=== PATIENT | male | born 1950 | race Caucasian/White ===

== ENCOUNTER 2017-10-16 09:00 | Outpatient (RCR) | payer MEDICARE, BC, SELFPAY ==
--- NOTE | 2017-10-02 09:53 | PTTR_ITS ---
DATE: 10/02/17 SUBJECTIVE: Benito states he was doing better until this weekend, when he played tennis the first time in awhile and immediately reinjured his R shoulder , starting with a vannessa then with a back tender fourdrinier. He bailed out after a couple of games. His shoulder is feeling better today but is still symptomatic. He complains of intermittent discomfort throughout the lateral aspect of the proximal R humerus. This is usually movement induced. Has no resting pain. He is able to sleep on his R side OBJECTIVE: Seen approx. 2 weeks ago. Has been on a scapular stabilization program and had been progressing nicely until he picked up the racket. He comes into the clinic with a kinesio tape-type on his R humerus. His cervical spine movements are nonirritable, although limited within an articular pattern. 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 He has questions about orthotic devices. He looked at some OTC devices, full length as well as sulcus length, and he is going to try these out tomorrow in his athletic shoes as he does not have them today. His active R shoulder motion feels good with initiation of flexion and abduction without scapular substitution. He has some end range pain, particularly with abduction. I did not test thumbs behind the back. I load the cuff today and he has weakness with ER with minimal discomfort. He has some discomfort with pure abduction, but tolerates resistance relatively well, as well as scaption/abduction and IR. Negative pain with elbow flexion or forearm supination. I do not see a Manjinder deformity. He is non tender over the GT or the posterior aspect of the humeral head. He is tender over the long head of the biceps bilaterally and equally. I review his exercise program and have him start some side lying ER anti- gravity exercises to activate the infraspinatus component. No weights for the time being but he can add some 1 or 1 lb weights with time as symptoms diminish. I also do some core strengthening with activating the transverse abdominis, along with diaphragmatic breathing in the glutes. He has weakness with resisting the gluteus medius in the side lying position, but he locks in nicely once he stabilizes his core. Therapeutic procedures ([id number]). Assessment: Pt aggravated his shoulder while playing tennis the other day. He does have some weakness in the infraspinatus and I question whether he has a partial tear , or at least extended it. He has had some orthotic devices in the past 30 years ago and did not like them, but he is interested in trying to address his hyperpronation. He is going to try an OTC pair just to see how to fix his overall symptoms and alignment. Plan: As noted above. Starting to work on his core as well as continue with his scapular stabilization exercises, but within the limits of pain, particularly with his ER. He is going to stop by the clinic in the next day or 2 and try the OTC orthotic devices. He has a follow-up appt with me in 2 weeks. Direct treatment time: 30 min Total treatment time: 30 min DLW/fw
--- NOTE | 2017-10-16 09:00 | PTDS_ITS ---
Date: October 16, 2017 Referring: Omid Moeller DO Diagnosis: Cuff/bicep tendinopathy R shoulder with OA of L knee. Subjective: History of Present Illness: Benito notes a 70% improvement in his shoulder pain compared to 2 weeks ago. He was doing fine until this morning when he was lifting a bag of garbage out to the side and aggravated it, but for the most part has been moving in a positive direction. He is back to lifting weights, particularly ones designed by ourselves. No increase in his knee pain. Objective: A 66 year old male with osteoarthritis of the knees L greater than R and a cuff tendinopathy of the R shoulder. He aggravated this playing tennis 3 weeks ago, but it settled back down until this morning when he re-aggravated it. ROM: His cervical spine movements are mildly limited within an articular pattern, but without pain on movement or reproduction of his symptoms. His R shoulder motion reveals good initiation of flexion/abduction without scapular substitution or painful arc. His R thumb is 1 below the L when reaching behind his back with end range drawing throughout the anterior aspect of the proximal R humerus. He tolerates good resistance to the rotator cuff, but it does reproduce his symptoms when loading the supra and infraspinatus components. He is non-tender over the AC/SC joints, subacromially. He clears with a Hawkin's Nathen impingement maneuver. Knee examination was not performed. We discussed his HEP, which he has been compliant with. He works out regularly at [employer]. Treatment: Therapeutic Procedure [id number] Treatment Time: 25 mins Assessment: Symptoms are much more manageable now. He did aggravate his shoulder today with lifting heavier item out to the side, has loaded up the infraspinatus component of his cuff, probably has a partial tear and is still healing. The important this, is that he is 70% better compared to a few weeks ago, so he is moving in a positive direction and he feels it is manageable and does not need more aggressive intervention currently. This certainly is an option if his symptoms persist after another 6-12 weeks. G-Codes: Patient was limited in the category of mobility, walking, moving around with projected goal of [id number] and discharge status of [id number] GOALS have been obtained. Plan: Have Torin continue with his HEP being careful of lifting weights out to the side, when doing so making sure he is in sagittal plane. Discharge from P.T. DLW/dl *Dr. Moeller, please sign this discharge summary if you are in agreement with the above plan of care. cc: Omid Moeller DO
== END 2017-10-26 23:59 | disposition home or self-care (01) ==
LOC: PT 09:00
PROVIDERS: PCP Family Medicine; Referring Provider Family Medicine; Visit Provider Family Medicine
DX: M65.811 Other synovitis and tenosynovitis, right shoulder (principal); M75.21 Bicipital tendinitis, right shoulder; M75.41 Impingement syndrome of right shoulder; M17.12 Unilateral primary osteoarthritis, left knee
CPT/HCPCS: 97110

== ENCOUNTER → 2017-12-11 09:35 | Outpatient (BNVA) | payer MEDICARE, BC, SELFPAY | PROVIDERS: Visit Provider Orthopaedic Surgery | DX: M17.12 Unilateral primary osteoarthritis, left knee (principal); M75.81 Other shoulder lesions, right shoulder | CPT/HCPCS: 20610; 99211; 99213; J7325 ==

== ENCOUNTER 2018-01-31 09:06 | Outpatient (CLI) | payer MEDICARE, BC, SELFPAY ==
[2018-01-31 11:03] LABS: Abs Immature Grans 0.02 k/cumm (0.0-0.09); HCT 42.3 % (40.0-50.0); HGB 14.5 g/dL (13.5-17.5); Mean Corp. HGB Concentration 34.3 g/dL (32.0-36.0); Mean Corpuscular Hemoglobin 30.9 pg (27.0-33.0); Mean Corpuscular Volume 90.2 fL (80-95); Mean Platelet Volume 9.8 fL (8.0-11.0); Platelet Count 249 x1000/uL (130-400); RBC 4.69 m/cumm (4.50-6.00); RBC Distribution Width 13.4 % (11.8-14.1); White Blood Cell Count 5.85 k/cumm (4.4-10.8)
[2018-01-31 11:30] LABS: Anion Gap 8.2 mmol/L (3-11); BUN 22 mg/dL (7-18); CO2 25.8 mmol/L (21.0-32.0); Calcium 8.8 mg/dL (8.5-10.1); Chloride 104 mmol/L (98-107); Cholesterol 206 mg/dL (50-200); Glucose 105 mg/dL (70-100); HDL Cholesterol 37 mg/dL (40-60); LDL CHOLESTEROL 140 mg/dL (<100); Potassium 4.3 mmol/L (3.5-5.1); Sodium 138 mmol/L (136-145); Triglyceride 110 mg/dL (30-150)
[2018-01-31 11:56] LABS: TSH (W/Ref FT4) 2.42 uIU/mL (0.358-3.74); Vitamin B12 410 pg/mL (193-986)
[2018-01-31 12:10] LABS: Absolute Basophil Count 0.18 k/cumm (0.0-0.2); Absolute Eosinophil Count 0.35 k/cumm (0.0-0.7); Absolute Lymphocyte Count 1.81 k/cumm (1.2-3.4); Absolute Monocyte Count 0.64 k/cumm (0.11-0.7); Absolute Neutrophil Count 2.87 k/cumm (1.2-6.7); Atypical Lymphocytes % 11; Diff Comment Manual Differential; RBC Morphology Normal
== END 2018-01-31 09:26 ==
PROVIDERS: PCP Family Medicine; Visit Provider Family Medicine
DX: R53.83 Other fatigue (principal); E78.5 Hyperlipidemia, unspecified; R73.9 Hyperglycemia, unspecified
CPT/HCPCS: 36415; 80048; 80061; 83721; 82607; 84443; 85025

== ENCOUNTER → 2018-07-16 09:19 | Outpatient (BNVA) | payer MEDICARE, BC, SELFPAY | PROVIDERS: PCP Family Medicine; Referring Provider Family Medicine; Visit Provider Orthopaedic Surgery | DX: M75.81 Other shoulder lesions, right shoulder (principal); M17.12 Unilateral primary osteoarthritis, left knee; M21.162 Varus deformity, not elsewhere classified, left knee | CPT/HCPCS: 20610; 99211; 99212; J7325 ==

== ENCOUNTER 2018-07-26 09:18 | Outpatient (CLI) | payer MEDICARE, BC, SELFPAY ==
--- NOTE | 2018-07-26 09:14 | DI.RAD_ITS ---
SYMPTOMS/DIAGNOSIS: LT TKA PLANNING LEG LENGTH EXAMINATION: In the right knee there is moderate narrowing and mild periarticular spurring in the medial femoral tibial joint space. Mild periarticular spurring is seen laterally. In the left knee there is moderately severe narrowing in the femoral tibial joint space with periarticular spurring seen medially and laterally. Chondrocalcinosis is present. The right lower extremity measures 93.9 cm. The left lower extremity measures 93.2 cm. LEFT KNEE: Single lateral view was obtained. The AP view of the left knee was evaluated on the leg length examination. In the medial joint compartment there is moderately severe narrowing present. There is mild narrowing of the patellofemoral joint. Periarticular spurring is seen involving all three joint compartments. There does appear to be chondrocalcinosis. There is a moderate suprapatellar joint effusion. Vascular calcifications are present. IMPRESSION: Moderately severe degenerative changes of the left knee.
== END 2018-07-26 09:38 ==
PROVIDERS: PCP Family Medicine; Referring Provider Family Medicine; Visit Provider Student in an Organized Health Care Education/Training Program
DX: M17.12 Unilateral primary osteoarthritis, left knee (principal); M21.70 Unequal limb length (acquired), unspecified site; M16.11 Unilateral primary osteoarthritis, right hip; M25.562 Pain in left knee; I10 Essential (primary) hypertension
CPT/HCPCS: 99212; 99213; 73560; 77073

== ENCOUNTER 2018-08-16 08:16 | Outpatient (CLI) | payer MEDICARE, BC, SELFPAY ==
--- NOTE | 2018-08-16 09:35 | HPE_ITS ---
Assessment and Plan (1) Primary osteoarthritis of left knee: Current visit: No Status: Chronic Plan: Educated patient on surgery covering surgical technique with the use of prosthesis components, recovery process, benefits and risks including but not limited to risk of infection, blood clot, damage to soft tissue/blood vessels/nerves in detail. After discussion patient gives verbal understanding of risks and elects to proceed with scheduling surgery. Patient had opportunity to have questions answered to their satisfaction. They will contact office if issues arise. Patient will continue to be scheduled for left total knee replacement with Dr. Fowler. History of Present Illness Narrative: Mr. Adrian is a 68-year-old male who presents to clinic for his preoperative appointment for scheduled left TKA. Patient has a long standing history of several injuries to his left knee since which required two arthroscopies by Dr. Karimi. Prior to being referred to this orthopedic office patient had been treating his knee complaints by having Synvisc injections approximately twice yearly for approximately 10 years. Although patient is hesitant to state he has left knee pain he does relate restriction of activity and motion for more than a decade. Patient does experience an aching discomfort that is aggravated with downhill motions. Over the past week he has been experiencing severe left knee aching at night. Reports this is a new symptom that causes him to have difficulty sleeping. Dr. Hart has done several meniscal releases that help to improve his range of motion for a short time. However, his primary complaint is restricted range of motion. 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 But due to his left knee he has decreased his hiking activity due to aggravation of pain while descending. Denies any sensation of the left knee giving out, fall, injuries, locking, clicking, numbness or tingling. Due to his known left knee DJD Dr. Fowler offered surgical intervention and patient was eager to proceed. Pertinent Surgical Information Denies past medical history of: stroke, cardiac issues, angina, asthma, COPD, sleep apnea, renal issues, liver issues, hepatitis, gastrointestinal issues, ulcers, bleeding disorders, seizures, migraines, anxiety, depression, diabetes, autoimmune disorders, thyroid issues Denies prior complications from surgery or anesthesia. Review of Systems Constitutional Denies fever(s), Denies frequent falls and Denies headache(s) Eyes Denies change in vision ENT Denies dizziness, Denies ear discharge, Denies headache(s), Denies epistaxis, Denies nasal discharge and Denies sore throat Cardiovascular Denies chest pain, Denies rapid heart rate, Denies irregular heart rhythm, Denies dyspnea, Denies dyspnea on exertion, Denies orthopnea, Denies paroxysmal nocturnal dyspnea and Denies slow heart rate Respiratory Denies cough, Denies dyspnea, Denies dyspnea on exertion and Denies wheezing Gastrointestinal Denies abdominal pain, Denies melena, Denies hematochezia, Denies constipation, Denies diarrhea, Denies nausea and Denies vomiting Genitourinary Denies hematuria and Denies dysuria Musculoskeletal Reports as per HPI, Reports numbness (bilateral little and ring fingers) and Reports tingling (bilateral little and ring fingers) Neurologic Denies dizziness, Denies frequent falls, Denies headache(s), Reports numbness (bilateral little and ring fingers) and Reports tingling (bilateral little and ring fingers) Psychiatric Denies anxiety and Denies depression Allergic/Immunologic Denies wheezing PFSH Medical History Strain of right biceps (Acute) Tendonitis of shoulder, right (Chronic) Primary osteoarthritis of left knee (Chronic) Sciatica (Resolved 09/10/12) Peripheral vascular disease (Chronic 07/06/10) Hyperlipidemia (Chronic 07/27/11) History of skin disorder (Chronic 12/24/15) Essential hypertension (Chronic) Elev transaminase/LDH (Chronic 02/26/89) Abnormal fasting glucose (Chronic 07/27/09) Lumbar back pain with radiculopathy affecting left lower extremity (Resolved) Surgical History Hx of tonsillectomy (Chronic) Hx of eye surgery (Acute) H/O arthroscopy of knee (Acute) CARPAL TUNNEL (08/04/16) Lumbar Epidural Steroid Injection (08/28/16) Lumbar Epidural Steroid Injection (12/05/16) Lumbar Epidural Steroid Injection (03/06/17) Open Carpal Tunnel release (10/07/14) Trigger Finger release (08/04/16) S/P trigger finger release (Acute 06/09/11) Social History Smoking/Tobacco Use Status: Never Alcohol Intake: current Alcohol Intake frequency: 0-2 drinks per day Drug use: Never Substance use type: does not use Adopted: No Household members: spouse Housing: house Number of Children: 2 current occupation: Banker What type of physical activity do you participate in: regular exercise Duration: 30-45 minutes/day Frequency: 5-6 times per week Seatbelt use: always Drive intox or ride w/intox medical delivery driver: No Working smoke detector in home: Yes Fire extinguisher in home: Yes Carbon monox detector in home: Yes Do you feel safe in your relationship?: Yes Meds Home Medications Medication Instructions Recorded Confirmed Type aspirin [Aspir 81] 81 mg PO M,W,F tab 09/06/12 08/16/18 History [id number] 2 ea PO DAILY 09/06/12 08/16/18 History multivitamin [Daily Vitamin] 1 ea PO DAILY 09/06/12 08/16/18 History ibuprofen 400 mg PO Q4H PRN tab-cap 05/07/15 08/16/18 History Tumeric 1 tab PO DAILY 05/25/17 08/16/18 History lisinopril 10 mg tablet 10 mg PO DAILY 90 Days #90 tab-cap 02/15/18 08/16/18 Rx omeprazole 20 mg capsule,delayed 20 mg PO Q48H PRN #90 cap 02/15/18 08/16/18 Rx release Allergies Allergy/AdvReac Type Severity Reaction Status Date / Time ezetimibe [From Zetia] AdvReac Intermediate cramping Verified 08/16/18 08:27 atorvastatin AdvReac Unknown muscle Verified 08/16/18 08:27 cramps lovastatin AdvReac Unknown muscle Verified 08/16/18 08:27 cramps pravastatin AdvReac Unknown muscle Verified 08/16/18 08:27 aches Exam Const General: cooperative and no acute distress [facility] Head: normal to inspection, normocephalic and atraumatic Ears: external ears normal General nose exam: external nose normal and no nasal discharge Face and sinus: face symmetric Mouth: oral mucosae normal, lip normal, tongue normal and moist mucous membranes Teeth and gingiva: dentition normal Throat: posterior oropharynx normal Eyes General: appearance normal, both eyes and all related structures Pupils: PERRL EOM: EOM intact bilaterally Neck Neck: trachea midline Carotids: normal carotid upstroke Lymphatic: no lymphadenopathy noted Resp Effort & Inspection: normal respiratory effort and able to speak in complete sentences Auscultation: clear to auscultation bilaterally, no rales, no rhonchi and no wheezes Cardio Heart Sounds: S1 normal, S2 normal, no murmurs, no rubs and no other Pulses: radial pulses present bilaterally GI Palpation: soft, no hepatosplenomegaly and nontender Auscultation: normal bowel sounds Skin General skin exam: no rashes or lesions noted Extrem Other: Left knee examination: Skin is intact without signs of calor, erythema, edema or lesions. Tenderness to palpation are noted along his medial joint line and over palpable osteophytes. Active range of motion is short of full extension by just over 10 degrees. Results Labs : 08/16/18 09:18 08/16/18 09:18
[2018-08-16 10:08] LABS: HCT 40.9 % (40.0-50.0); Mean Corp. HGB Concentration 34.2 g/dL (32.0-36.0); Mean Corpuscular Volume 90.5 fL (80-95); Mean Platelet Volume 9.8 fL (8.0-11.0); Platelet Count 256 x1000/uL (130-400); RBC 4.52 m/cumm (4.50-6.00); RBC Distribution Width 13.6 % (11.8-14.1); White Blood Cell Count 5.95 k/cumm (4.4-10.8)
[2018-08-16 11:56] LABS: Anion Gap 11.8 mmol/L (3-11); BUN 28 mg/dL (7-18); CO2 24.2 mmol/L (21.0-32.0); CREATININE 0.97 mg/dL (0.70-1.30); Calcium 9.2 mg/dL (8.5-10.1); Chloride 105 mmol/L (98-107); Glucose 102 mg/dL (70-100); Potassium 5.3 mmol/L (3.5-5.1); Sodium 141 mmol/L (136-145)
== END 2018-08-16 08:36 ==
PROVIDERS: PCP Family Medicine; Visit Provider Student in an Organized Health Care Education/Training Program
DX: M25.562 Pain in left knee (principal); M17.12 Unilateral primary osteoarthritis, left knee; Z01.812 Encounter for preprocedural laboratory examination; Z01.818 Encounter for other preprocedural examination
CPT/HCPCS: 36415; 80048; 85027; NC

== ENCOUNTER 2018-08-20 09:28 | Inpatient (IN) | payer MEDICARE, BC, SELFPAY ==
[2018-08-16 08:35] VITALS: BP 134/66; PULSE 64; RESP 18; TEMP 36.6; O2SAT 96
[2018-08-16 08:38] VITALS: BP 134/66; PULSE 64; RESP 18; TEMP 36.6; O2SAT 96
[2018-08-20] VITALS (10 sets, daily range): BP systolic 123–169; BP diastolic 68–95; PULSE 55–74; RESP 12–18; TEMP 36.2–36.9; O2SAT 97–99
[2018-08-20] MEDS: Celecoxib 200 MG CAP 400 MG PO (09:56)
[2018-08-20] MEDS: Acetaminophen 500 MG TAB 1000 MG PO ×2 (09:56→19:26)
[2018-08-20] MEDS: Gabapentin 300 MG CAP PO ×2 (09:57→21:22)
[2018-08-20] MEDS: oxyCODONE-CR 10 MG TABCR PO (09:57)
[2018-08-20] MEDS: Lactated Ringers 1,000 ML 80 ML IV ×2 (09:58→14:56)
[2018-08-20] MEDS: Bupivacaine LIPOSOME/PF 133 MG/10 ML VIAL IJ ×2 (10:28→13:08)
[2018-08-20] MEDS: Bupivacaine 0.25% Pres-Free 10 ML VIAL (10:28)
[2018-08-20] MEDS: ceFAZolin 2 GM/50 ML BAG IVPB (11:47)
[2018-08-20] MEDS: Normal Saline 50 ML (13:08)
[2018-08-20] MEDS: Bupivacaine 0.25% Pres-Free 30 ML VIAL (13:08)
[2018-08-20] MEDS: Ketorolac 30 MG/ML VIAL (13:08)
--- NOTE | 2018-08-20 15:06 | NUR.NOTE ---
Nursing Note: Pt arrived from PACU. A&Ox3. VSS. mckenna patent. TIESHA wrap on LLE. palpable pedal pulse. sensation returning.
--- NOTE | 2018-08-20 18:09 | W.PM.OP ---
Date of service: 08/20/18 Time of Service: 18:09 Operative Note DATE OF PROCEDURE: 08/20/18 PRE-OP DIAGNOSIS: Left knee osteoarthritis POST-OP DIAGNOSIS: same PROCEDURE: Left Total Knee Replacement SURGEON: Ketan Fowler ELEMENT[employer] SCHOOL SCIENCE TEACHER: Poonam Murrieta ANESTHESIA: regional and spinal ESTIMATED BLOOD LOSS: 300 PATHOLOGY: none sent TOURNIQUET TIME: 33 COMPLICATIONS: None Patient was transported to: PACU Patient's condition: stable Implants: 1. Depuy Attune Posterior Stabilized Femoral Component, Size 7 2. Depuy Attune Fixed Platform Tibial Component, Size 7 3. Depuy Attune 7 x 10 mm fixed, Stabilized Poly 4. Depuy Attune Patellar Component, Size 38 mm Indications: I have seen Benito in clinic for symptoms of left knee arthritis, confirmed with radiographic findings. Benito has exhausted nonoperative methods and was having significant limitations in daily function and desired better function and less pain. I discussed the technical details of a knee replacement. I explained the risks of the procedure to include, but not limited to, bleeding, infection, pain, stiffness, fracture, damage to nerves and vessels, damage to muscles and tendons, loosening, need for repeat procedure, blood clot and cardiopulmonary demise. Despite these risks, he elected to proceed. Findings: There was significant signs of arthritis throughout the knee. There is notable deformity and cartilage wear of the medial side with osteophyte seen posteriorly medially and laterally. Procedure Description: Benito was greeted in the preoperative holding area where the correct side was identified and marked. The consent was reviewed with the patient and signed. The history and physical was updated. All questions were answered. Preoperative mediacations were administered: Acetaminophen 1000mg, Celebrex 400mg, Gabapentin 300mg, and Oxycontin 10mg. An adductor canal block was then administered by the anesthesia team in the PACU. Benito was taken back to the operating room. A spinal anesthestic was then administered. The patient was placed into the supine position on the operating room table. A nonsterile tourniquet was placed high onto the leg but only used for cementing. Posts were placed for positioning during the procedure. All bony prominences were well padded. Prophylactic antibiotics in the form of cefazolin were administered. 1g of Tranxemic Acid was given intravenously within 30 minutes of incision. The left leg was then prepped with Chloraprep and draped in a standard fashion with impervious stockinette and extremity drape with Iodine impregnated skin protection. A timeout to confirm correct identity, side and site, procedure, allergies, anesthesia, and medical concerns was performed. With the knee in some flexion, a midline incision was made overlying the knee. Full thickness skin flaps were raised once the extensor mechanism was encountered. These were raised medially and laterally. Any bleeding was controlled with electrocautery. Once the extensor mechanism was fully exposed, a medial parapatellar arthrotomy was performed in a flexed position. All bleeding from the arthrotomy and the geniculate arteries was coagulated. A medial subperiosteal peel was performed with electrocautery to the midcoronal plane. Due to the significant varus deformity the entire medial tibial plateau was exposed. The fat pad was removed while keeping the patellar tendon protected. The anterior distal femur synovium was removed for later visualization. The ACL and PCL were resected and the anterior horn of the lateral meniscus was transected. The knee was then flexed with the patella everted. Large osteophytes from the tibia were removed. Large osteophytes from the femur were removed. Using a step drill, and based on preoperative templating, the femoral canal was entered. This was done with a step drill without any difficulty. The intramedullary distal femoral cut guide was inserted, set to a 5 degree valgus cut and 9mm cut thickness. The distal femoral cut guide was then held in position and pinned. With the soft tissues protected, the distal cut was performed. This was passed over a few times to ensure a planar cut. I then turned attention to the tibia. The extramedullary guide was placed onto the leg. The distal aspect was slid medial to adjust for position of center of ankle and stay in line with shaft of the tibia. Approximately 3-5 degrees of posterior slope was kept in the proximal cutting guide. The center of the guide was aligned with the PCL. The stylus was used to assess cut thickness. The medial side, most involved side, was set for a 3mm cut. This was then held in position and pinned into place with 2 additional pins and a cross pin for stability. The medial and lateral collateral ligaments were protected and the cut was performed. With this completed, it was assessed and noted to be of appropriate dimensions. The guide was removed. A spacer block was inserted and the knee was brought into extension. The 8 mm spacer block provided full extension, without hyperextension and with stability of both the medial and lateral collateral ligaments was assessed. The pins from the femur and the tibia were then removed. The distal femur was then sized. The anterior stylus was placed onto the lateral ridge of the anterior femur. This indicated a size 7 femur. The external rotation of the guide was adjusted to 3 degrees to match the epicondylar axis, perpendicular to Haines?s line. The 4-in-1 cutting guide was the placed. The posterior medial femur cut was evaluated and appeared of good thickness. The spacer block was inserted underneath the cutting guide and stability was confirmed in 90 degrees of flexion. An anita wing was used to confirm appropriate position of the anterior cut to avoid notching. This cutting guide was ensured to be flush on the cut surface and then pinned into place with headed pins. While protecting the soft tissues, quad tendon, and collateral ligaments, the anterior and posterior cuts were performed with a saw. The central two pins were removed and the posterior and anterior chamfers were cut next. The notch-cutting guide was placed. This was pinned to lateralize the femoral component as much as possible while keeping it flush on the cut surface. This was then pinned into position. A reciprocating saw was used to make the notch cut. A rasp smoothed the cut surfaces. A trial posterior stabilized femoral component was then inserted, impacted down to the cut surfaces, and the lug holes were drilled. A provisional trial tibial component was placed and the knee was brought through range of motion. There was some slight laxity with varus stress. The medial structures were obvious and quite tight. Therefore, I released some more of the medial attachments around the periphery of the medial tibia. I also took a curved osteotome to release some bone spurs from the posterior medial aspect of the femur as well as strip some of the capsule to posterior medial femur. After performing this a 10 mm polyethylene fit well obtaining full extension and full flexion without any notable instability, all within 1 to 2 mm. The patella was tracking without thumbs. The tibial cut surface was fully exposed. The medial and lateral menisci were removed. The tibia was then sized as a 7. The tibia had been previously marked during trialing to correspond to the center of the tibial component to help with rotation. The trial was aligned to this poonam, approximately rotated to the medial 1/3rd of the tibial tubercle. The trial was pinned into place. The tibia was prepared with a reamer and a keel punch. The knee was then brought into extension and the patella was measured as 35 mm. Using the patellar clamp and cut guide, this was resected to a flat surface with at least 13mm of thickness remaining. The size 38 mm patella fit the best. This was oriented and then clamped into position. The lugs were drilled. The trial components were removed. The final components, except for the polyethylene were opened on the back table. The periosteal and capsular tissues, especially posteriorly, around the knee were then systematically injected with a periarticular cocktail consisting of 50cc 0.25% Marcaine, 30mg Ketorolac, 20cc of Exparal and 50cc of injectable saline. The tourniquet was then inflated to 275mmHg. The knee was thoroughly irrigated with a pulse lavage and dried. On the back table, with the implants opened, the cement was mixed. 2 batches of antibiotic laden cement were prepared with vacuum assistance. After the cement was ready a small amount was placed on to the back side of the tibial component at the keel. A small amount was placed onto the posterior flange of the femur. Cement was manual pressurized and impregnated into the cut surface of the tibia. The tibial component was then inserted into the cut surface and impacted into position. Excess cement was removed and the component was reimpacted. Again, excess cement was removed and our attention was then turned to the femur. The femoral cut surface was once again dried and cement was manually impacted into the cut surface. The femoral component was lined with the lug holes and impacted. Excess cement was removed. It was ensured to be down against the cut surface. The trial polyethylene was then inserted and the leg was brought out into full extension for the duration of the cement curing process, approximately 15min. Cement was lastly manually impacted into the cut surface of the patella and the patellar button was clamped into position and held. During this process attention was turned to the gutters of the knee and for all interfaces for any excess cement. After the cement had finally cured, approximately 15min, the clamp was removed from the patella and the knee was taken through range of motion. A size 10 mm polyethylene component provided the best range of motion and stability with less than 2mm gapping with medial and lateral stress and full extension without significant hyperextension. The patella was tracking with a no-thumbs technique. The trial poly was removed and once again the knee was checked for any loose, excess, or errant cement. The poly component was then inserted and impacted into position after cleaning and drying the tibial tray. The capsule was then reapproximated with a No. 1 Vicryl at multiple locations. The capsule was finally closed with a No. 2 Stratafix, barbed suture. The tourniquet was then released and the arthrotomy appeared watertight without significant bleeding. The second dosing of 1g TXA was started. Deep tissues were then reapproximated with 0 Vicryl and 2-0 Vicryl. The skin was closed with a running 3-0 Monocryl in a subcuticular fashion. This was reinforced with skin glue. A Mepilex silver dressing was applied along with a [id number] TIESHA wrap. A CryoCuff was applied. Benito was transferred to the hospital bed without difficulty an suffering no apparent complication. Benito has a good prognosis. Physical therapy will start today and without restrictions, weight-bearing as tolerated. Aspirin 81mg BID will be used for DVT prophylaxis.
[2018-08-20] MEDS: Celecoxib 200 MG CAP PO (19:26)
[2018-08-20] MEDS: Aspirin 81 MG CHEW PO (19:26)
[2018-08-20] MEDS: oxyCODONE 5 MG TAB PO ×2 (21:22→22:57)
[2018-08-21] MEDS: oxyCODONE 5 MG TAB PO ×2 (01:24→03:59)
[2018-08-21] MEDS: Lactated Ringers 1,000 ML 80 ML IV (01:24)
[2018-08-21 04:11] VITALS: BP 114/76; PULSE 59; RESP 14; TEMP 36.3; O2SAT 97
[2018-08-21] MEDS: Aspirin 81 MG CHEW PO (07:42)
[2018-08-21] MEDS: Lisinopril 10 MG TAB PO (07:42)
[2018-08-21] MEDS: Omeprazole 20 MG CAPCR PO (07:42)
[2018-08-21] MEDS: Acetaminophen 500 MG TAB 1000 MG PO (07:42)
[2018-08-21] MEDS: Multivitamin TAB 1 TAB PO (07:43)
[2018-08-21] MEDS: Celecoxib 200 MG CAP PO (07:43)
[2018-08-21 07:53] VITALS: BP 133/82; PULSE 63; RESP 18; TEMP 37.3; O2SAT 98
--- NOTE | 2018-08-21 08:15 | W.PM.DS.N ---
Date of service: 08/21/18 Time of Service: 08:15 DS: Diagnosis Discharge Diagnosis (1) Primary osteoarthritis of left knee: Status: Chronic Discharge Plan Disposition Patient Disposition: HOME Condition: Good Discharge Details Reason For Visit: LEFT KNEE DJD Admit Date/Time: 08/20/18 09:28 Admit Provider: Ketan Fowler Attending Provider: Ketan Fowler [facility] Hospital Course: Patient was admitted to the medical/surgical floor following the procedure. It was tolerated well without any notable medical, surgical, or anesthetic complications. Mobilization began postoperatively. The mckenna catheter was removed and voiding spontaneously. Vitals were stable. Physical therapy worked with the patient and was cleared for discharge home. No acute medical issues. Home Meds and New Rx's Prescriptions: New celecoxib 200 mg capsule 200 mg PO BID PRN (Reason: pain) Qty: 60 RF: 1 aspirin 81 mg tablet,delayed release (DR/EC) 81 mg PO BID Qty: 60 RF: 0 acetaminophen 500 mg tablet 1,000 mg PO Q8H PRN (Reason: pain) Qty: 90 RF: 3 gabapentin 300 mg capsule 300 mg PO QHS Qty: 7 RF: 0 oxycodone 5 mg tablet 5 mg PO Q4H Qty: 18 RF: 0 Continued lisinopril 10 mg tablet 10 mg PO DAILY 90 Days Qty: 90 RF: 3 omeprazole 20 mg capsule,delayed release(DR/EC) 20 mg PO Q48H PRN (Reason: reflux) Qty: 90 RF: 3 multivitamin [Daily Vitamin] 1 EACH tablet 1 ea PO DAILY RF: 0 [id number] 1 EACH tablet 2 ea PO DAILY RF: 0 tumeric 1 tab PO DAILY RF: 0 Discontinued aspirin [Aspir-81] 81 MG tablet,delayed release (DR/EC) 81 mg PO M,W,F RF: 0 ibuprofen 200 MG capsule 400 mg PO Q4H PRN RF: 0 Discharge Instructions Additional Instructions: Dr. Fowler?s Total Knee Discharge Instructions Activity: The most important activity is to walk. You should try to take short walks a few times a day. It is important that when resting you work on keeping the knee straight. Avoid putting a pillow behind the knee as this will encourage flexion. Work on range of motion exercises as provided by Physical Therapy. - Start outpatient physical therapy within 2 weeks. - You should wear the WALTER hose on both legs for 2 weeks. Dressing: Keep the surgical dressing in place for at least one week. After the first week it may be removed and replace with light gauze and tape or nothing. It may get wet after 3 days but avoid soaking the dressing. If it gets wet, just lightly pat dry. Medications: - You should take Tylenol and anti-inflammatory (Celebrex) as your primary pain control medications - You have been prescribed a stronger pain medication (Oxycodone) for breakthrough pain, take as needed as prescribed. - You will be taking Aspirin 81mg twice a day for DVT prevention unless instructed otherwise. - If you have constipation you should take Colace or Miralax (both [id number]). It takes most people 3-4 days to have a bowel movement. Follow-up: 2 weeks Referrals: Ketan Fowler MD [ [facility] STAFF PHYSICIAN] - Activity:: Activity as Tolerated Equipment/Supplies:: Walker Diet:: Normal Diet Discharge Orders Discharge Orders: Discharge Order (Routine); Ordered 08/21/18 Ordered By: Ketan Fowler DS: Data Vitals/I&O Vitals and I&O: Vital Signs Temperature 36.3 C L 08/21/18 04:11 Temperature Source Tympanic 08/21/18 04:11 Pulse 59 L 08/21/18 04:11 Pulse Rhythm Regular 08/20/18 22:24 Respiratory Rate 14 08/21/18 04:11 Respiratory Effort 08/20/18 22:24 Respiratory Depth Normal 08/20/18 22:24 Respiratory Pattern Normal 08/20/18 22:24 Blood Pressure 114/76 08/21/18 04:11 Pulse Oximetry 97 08/21/18 04:11 Respiratory End-tidal CO2 30 08/20/18 14:32 Oxygen Delivery Method Room Air 08/21/18 04:11 Oxygen Flow Rate 0 08/21/18 04:11 Pain Level 3 08/21/18 07:42 Intake & Output 08/20/18 08/20/18 08/21/18 11:59 23:59 11:59 Intake Total 50 / 6.667 6.667 / 213.667 1298.000 / 1298.000 Output Total 600 / 600 1600 / 1600 Balance 50 / 7897.004 7482.667 / 1536.667 -302.000 / -302.000 Weight 91 kg Intake: IV 50 / 9283.813 6730.667 / 7509.014 8026.000 / 1048.000 Oral 750 / 750 250 / 250 Output: Urine 200 / 200 1600 / 1600 Estimated Blood Loss 400 / 400 Other: Urine Color Yellow Yellow Yellow Urine Appearance Clear Clear Clear Emesis Description None [facility] Medical History Strain of right biceps (Acute) Tendonitis of shoulder, right (Chronic) Primary osteoarthritis of left knee (Chronic) Sciatica (Resolved 09/10/12) Peripheral vascular disease (Chronic 07/06/10) Hyperlipidemia (Chronic 07/27/11) History of skin disorder (Chronic 12/24/15) Essential hypertension (Chronic) Elev transaminase/LDH (Chronic 02/26/89) Abnormal fasting glucose (Chronic 07/27/09) Lumbar back pain with radiculopathy affecting left lower extremity (Resolved) Surgical History Hx of tonsillectomy (Chronic) Hx of eye surgery (Acute) H/O arthroscopy of knee (Acute) CARPAL TUNNEL (08/04/16) Lumbar Epidural Steroid Injection (08/28/16) Lumbar Epidural Steroid Injection (12/05/16) Lumbar Epidural Steroid Injection (03/06/17) Open Carpal Tunnel release (10/07/14) Trigger Finger release (08/04/16) S/P trigger finger release (Acute 06/09/11) Family History Mother Alzheimer's dementia Father Kidney disease Hyperlipidemia Brother Essential hypertension Sister Anxiety Maternal Grandmother Essential hypertension Other Alcohol abuse Social History Smoking/Tobacco Use Status: Never Alcohol Intake: current Alcohol Intake frequency: 0-2 drinks per day Drug use: Never Substance use type: does not use Adopted: No Household members: spouse Housing: house Number of Children: 2 current occupation: Banker What type of physical activity do you participate in: regular exercise Duration: 30-45 minutes/day Frequency: 5-6 times per week Seatbelt use: always Drive intox or ride w/intox truck driver salesperson: No Working smoke detector in home: Yes Fire extinguisher in home: Yes Carbon monox detector in home: Yes Do you feel safe in your relationship?: Yes
[2018-08-21 11:27] VITALS: BP 113/72; PULSE 64; RESP 19; TEMP 37.4; O2SAT 97
--- NOTE | 2018-08-21 12:00 | PT.INIE ---
Date of service: 08/21/18 Time of Service: 09:25 PT Notes Inpatient Physical Therapy Evaluation Date: 08/21/2018 Referring Doctor: Ketan Fowler MD PT Orders: PT CONSULT: Status post left TKA Precautions: Fall. Standard. Patient Profile/Admitting Diagnosis: Patient is a 68-year-old male with past medical history significant for lumbar back pain with radiculopathy currently with diagnosis of primary osteoarthritis of left knee status post left total knee arthroplasty on postoperative day 1 PMHX: Medical History Strain of right biceps (Acute) Tendonitis of shoulder, right (Chronic) Primary osteoarthritis of left knee (Chronic) Sciatica (Resolved 09/10/12) Peripheral vascular disease (Chronic 07/06/10) Hyperlipidemia (Chronic 07/27/11) History of skin disorder (Chronic 12/24/15) Essential hypertension (Chronic) Elev transaminase/LDH (Chronic 02/26/89) Abnormal fasting glucose (Chronic 07/27/09) Lumbar back pain with radiculopathy affecting left lower extremity (Resolved) Surgical History Hx of tonsillectomy (Chronic) Hx of eye surgery (Acute) H/O arthroscopy of knee (Acute) CARPAL TUNNEL (08/04/16) Lumbar Epidural Steroid Injection (08/28/16) Lumbar Epidural Steroid Injection (12/05/16) Lumbar Epidural Steroid Injection (03/06/17) Open Carpal Tunnel release (10/07/14) Trigger Finger release (08/04/16) S/P trigger finger release (Acute 06/09/11) Social History/Home Situation: He is a retired banker. Has a home near [place] and is in [place] during the winter months. He is an avid skier. Current Functional Limitations: Need for an assistive device for all transfer and ambulation task performance Equipment Owned/DME: [facility] Subjective: Patient is agreeable to a physical therapy consult saying he did walk yesterday night with nursing staff as he was becoming stiff. He looks forward to going home today whenever advised by orthopedic surgeon to do so. Objective: General Observation: Patient seen resting on chair. Bilateral TEDS on legs. Gr catheter and IV now both out. Mental Status: Alert and oriented x4 Pain: 1/10 on the left knee with movement and ambulation task performed ROM: Right Upper Extremity: Shoulder Flexion WFL. Shoulder abduction WFL. Elbow flexion WFL. Wrist flexion WFL. Functional opening and closing of hand WFL. Left Upper Extremity: Shoulder Flexion WFL. Shoulder abduction WFL. Elbow flexion WFL. Wrist flexion WFL. Functional opening and closing of hand WFL. Right Lower Extremity: Hip flexion WFL. Hip abduction WFL. Knee flexion WFL. Ankle dorsiflexion WFL. Ankle plantarflexion WFL. Left Lower Extremity: Hip flexion WFL. Hip abduction WFL. Knee flexion 0 to 90 degrees. Knee extension -10 degrees. Ankle dorsiflexion WFL. Ankle plantarflexion WFL. Strength: Right Upper Extremity: Shoulder flexors 5/5. Shoulder abductors 5/5. Elbow flexors 5/5. Elbow extensors 5/5. Care Management Coordinator strong. Left Upper Extremity: Shoulder flexors 5/5. Shoulder abductors 5/5. Elbow flexors 5/5. Elbow extensors 5/5. Care Management Coordinator strong. Right Lower Extremity: Hip flexors 5/5. Hip abductors 5/5. Knee flexors 5/5. Knee extensors 5/5. Ankle dorsiflexors 5/5. Ankle plantarflexors 5/5. Left Lower Extremity:Hip flexors 5/5. Hip abductors 5/5. Knee flexors 3-/5. Knee extensors 3-/5. Ankle dorsiflexors 5/5. Ankle plantarflexors 5/5. Sensation: Intact as to pain and pressure on bilateral lower extremities. Bed Mobility/Transfers: Rolling independent Supine to sit independent Sit to supine independent Sit to stand independent Stand to sit independent Bed to chair independent Chair to bed independent Gait: Patient tolerated level surface ambulation of 300 feet using FWW requiring only supervision assist from, WBAT on left LE with report of on right knee that subsided with rest. Decreased hip and postoperative status. Balance: Static Sitting: Good Dynamic Sitting: Good Static Standing: Good Dynamic Standing: Fair Special Tests: Mobility Limitations Standardized Measure [facility]-PAC 6 clicks Basic Mobility Inpatient Short Form: Raw Score: 21 CMS Score: 19% deficit Informed Consent/Education: Patient instructed in purpose of PT consult and plan of care. Assessment: Patient is a 68-year-old male with past medical history significant for lumbar back pain with radiculopathy currently with diagnosis of primary osteoarthritis of left knee status post left total knee arthroplasty on postoperative day 1. Patient presents with clinical signs and symptoms consistent with current/admitting diagnoses that have resulted to mobility limitations, gait instability, generalized weakness, and impairment of motor control as demonstrated by the following impairment level findings: 1. Decreased strength to left knee LE major muscle groups 2. Impaired standing balance 3. Impaired activity tolerance 4. Limitation of joint range of motion in left knee Impairments are contributing to the following functional limitations: 1. Inability to safely ambulate without assistive device and physical assistance 2. Increase completion time for mobility ADL performance 3. Increased fall risk Patient is assessed as a 53799 moderate complexity based on the following: History: Patient is a 68-year-old male with past medical history significant for lumbar back pain with radiculopathy currently with diagnosis of primary osteoarthritis of left knee status post left total knee arthroplasty on Examination: Demonstrable impairment in strength, balance, and range of motion with underlying impairments and functional limitations as documented above Presentation: Stable Decision Makin moderate Goals: Patient goes home today independent at walker level for all transfers and short distance ambulation, supervision with long distance and outdoor ambulation for safety. DISCHARGE RECOMMENDATIONS: Patient goes home today at highest mobility level per orthopedic surgeon recommendations. TREATMENT CODE/TIME: 58982 x35 minutes beginning at 9:25 AM. Thank you very much for this referral. Celi Pittman PT, DPT, CLT [facility]
--- NOTE | 2018-08-23 17:26 | IN_ITS ---
Date of service: 08/21/18 Time of Service: 09:25 PT Notes Inpatient Physical Therapy Evaluation Date: 08/21/2018 Referring Doctor: Ketan Fowler MD PT Orders: PT CONSULT: Status post left TKA Precautions: Fall. Standard. Patient Profile/Admitting Diagnosis: Patient is a 68-year-old male with past medical history significant for lumbar back pain with radiculopathy currently with diagnosis of primary osteoarthritis of left knee status post left total knee arthroplasty on postoperative day 1 PMHX: Medical History Strain of right biceps (Acute) Tendonitis of shoulder, right (Chronic) Primary osteoarthritis of left knee (Chronic) Sciatica (Resolved 09/10/12) Peripheral vascular disease (Chronic 07/06/10) Hyperlipidemia (Chronic 07/27/11) History of skin disorder (Chronic 12/24/15) Essential hypertension (Chronic) Elev transaminase/LDH (Chronic 02/26/89) Abnormal fasting glucose (Chronic 07/27/09) Lumbar back pain with radiculopathy affecting left lower extremity (Resolved) Surgical History Hx of tonsillectomy (Chronic) Hx of eye surgery (Acute) H/O arthroscopy of knee (Acute) CARPAL TUNNEL (08/04/16) Lumbar Epidural Steroid Injection (08/28/16) Lumbar Epidural Steroid Injection (12/05/16) Lumbar Epidural Steroid Injection (03/06/17) Open Carpal Tunnel release (10/07/14) Trigger Finger release (08/04/16) S/P trigger finger release (Acute 06/09/11) Social History/Home Situation: He is a retired banker. Has a home near [facility] and is in [place] during the winter months. He is an avid skier. Current Functional Limitations: Need for an assistive device for all transfer and ambulation task performance Equipment Owned/DME: [facility] Subjective: Patient is agreeable to a physical therapy consult saying he did walk yesterday night with nursing staff as he was becoming stiff. He looks forward to going home today whenever advised by orthopedic surgeon to do so. Objective: General Observation: Patient seen resting on chair. Bilateral TEDS on legs. Gr catheter and IV now both out. Mental Status: Alert and oriented x4 Pain: 1/10 on the left knee with movement and ambulation task performed ROM: Right Upper Extremity: Shoulder Flexion WFL. Shoulder abduction WFL. Elbow flexion WFL. Wrist flexion WFL. Functional opening and closing of hand WFL. Left Upper Extremity: Shoulder Flexion WFL. Shoulder abduction WFL. Elbow flexion WFL. Wrist flexion WFL. Functional opening and closing of hand WFL. Right Lower Extremity: Hip flexion WFL. Hip abduction WFL. Knee flexion WFL. Ankle dorsiflexion WFL. Ankle plantarflexion WFL. Left Lower Extremity: Hip flexion WFL. Hip abduction WFL. Knee flexion 0 to 90 degrees. Knee extension -10 degrees. Ankle dorsiflexion WFL. Ankle plantarflexion WFL. Strength: Right Upper Extremity: Shoulder flexors 5/5. Shoulder abductors 5/5. Elbow flexors 5/5. Elbow extensors 5/5. Traveling Sales Representative strong. Left Upper Extremity: Shoulder flexors 5/5. Shoulder abductors 5/5. Elbow flexors 5/5. Elbow extensors 5/5. Traveling Sales Representative strong. Right Lower Extremity: Hip flexors 5/5. Hip abductors 5/5. Knee flexors 5/5. Knee extensors 5/5. Ankle dorsiflexors 5/5. Ankle plantarflexors 5/5. Left Lower Extremity:Hip flexors 5/5. Hip abductors 5/5. Knee flexors 3-/5. Knee extensors 3-/5. Ankle dorsiflexors 5/5. Ankle plantarflexors 5/5. Sensation: Intact as to pain and pressure on bilateral lower extremities. Bed Mobility/Transfers: Rolling independent Supine to sit independent Sit to supine independent Sit to stand independent Stand to sit independent Bed to chair independent Chair to bed independent Gait: Patient tolerated level surface ambulation of 300 feet using FWW requiring only supervision assist from, WBAT on left LE with report of on right knee that subsided with rest. Decreased hip and postoperative status. Balance: Static Sitting: Good Dynamic Sitting: Good Static Standing: Good Dynamic Standing: Fair Special Tests: Mobility Limitations Standardized Measure [facility]-PAC 6 clicks Basic Mobility Inpatient Short Form: Raw Score: 21 CMS Score: 19% deficit Informed Consent/Education: Patient instructed in purpose of PT consult and plan of care. Assessment: Patient is a 68-year-old male with past medical history significant for lumbar back pain with radiculopathy currently with diagnosis of primary osteoarthritis of left knee status post left total knee arthroplasty on postoperative day 1. Patient presents with clinical signs and symptoms consistent with current/admitting diagnoses that have resulted to mobility limitations, gait instability, generalized weakness, and impairment of motor control as demonstrated by the following impairment level findings: 1. Decreased strength to left knee LE major muscle groups 2. Impaired standing balance 3. Impaired activity tolerance 4. Limitation of joint range of motion in left knee Impairments are contributing to the following functional limitations: 1. Inability to safely ambulate without assistive device and physical assistance 2. Increase completion time for mobility ADL performance 3. Increased fall risk Patient is assessed as a 04965 moderate complexity based on the following: History: Patient is a 68-year-old male with past medical history significant for lumbar back pain with radiculopathy currently with diagnosis of primary osteoarthritis of left knee status post left total knee arthroplasty on Examination: Demonstrable impairment in strength, balance, and range of motion with underlying impairments and functional limitations as documented above Presentation: Stable Decision Makin moderate Goals: Patient goes home today independent at walker level for all transfers and short distance ambulation, supervision with long distance and outdoor ambulation for safety. DISCHARGE RECOMMENDATIONS: Patient goes home today at highest mobility level per orthopedic surgeon recommendations. TREATMENT CODE/TIME: 74916 x35 minutes beginning at 9:25 AM. Thank you very much for this referral. Celi Pittman PT, DPT, CLT [facility]
== END 2018-08-21 13:36 | disposition home or self-care (01) | DRG 470 ==
LOC: PDS 10:27 → MS 14:09
PROVIDERS: Admitting Provider Student in an Organized Health Care Education/Training Program; PCP Family Medicine; Visit Provider Student in an Organized Health Care Education/Training Program
PROC: 0SRD0J9 Replacement of Left Knee Joint with Synthetic Substitute, Cemented, Open Approach (ICD-10-PCS; CPT 27447; principal; 2018-08-20 13:00)
DX: M17.12 Unilateral primary osteoarthritis, left knee (principal); Z96.652 Presence of left artificial knee joint
CPT/HCPCS: 27447; 76942; 97162; NC; J0690; J1885; J3010

== ENCOUNTER 2018-09-04 15:08 | Outpatient (CLI) | payer MEDICARE, BC, SELFPAY ==
--- NOTE | 2018-09-04 11:34 | DI.RAD_ITS ---
SYMPTOMS/DIAGNOSIS: S/P LEFT TOTAL KNEE ARTHROPLASTY LEFT KNEE: Lateral view of the knee shows total knee joint replacement in position. Components appear well seated. BILATERAL LOWER EXTREMITIES: AP views of the lower extremities were obtained for leg length determination. There is a total knee joint replacement in position on the left. On the right, there is marked narrowing of the cartilaginous joint space of the medial tibiofemoral joint with associated mild spurring and mild sclerosis of the adjacent bones. There appears to be severe degenerative change of the left hip and moderate degenerative change of the right hip.
== END 2018-09-04 15:28 ==
PROVIDERS: PCP Family Medicine; Referring Provider Family Medicine; Visit Provider Student in an Organized Health Care Education/Training Program
DX: Z96.652 Presence of left artificial knee joint; Z47.1 Aftercare following joint replacement surgery; M16.0 Bilateral primary osteoarthritis of hip; M17.11 Unilateral primary osteoarthritis, right knee
CPT/HCPCS: 73560; 77073

== ENCOUNTER 2018-10-02 10:34 | Outpatient (CLI) | payer MEDICARE, BC, SELFPAY ==
--- NOTE | 2018-10-02 08:06 | DI.RAD_ITS ---
SYMPTOM/DIAGNOSIS: PAIN, EVALUATE LT HIP OA PELVIS AND LEFT HIP: There is severe narrowing of the superior left hip joint space. There is periarticular sclerosis and mild periarticular spurring. There are moderate degenerative changes of the right hip. IMPRESSION: Degenerative changes of both hips, left greater than right.
== END 2018-10-02 10:54 ==
PROVIDERS: Referring Provider Family Medicine; Visit Provider Student in an Organized Health Care Education/Training Program
DX: M25.552 Pain in left hip (principal); M16.0 Bilateral primary osteoarthritis of hip; Z47.1 Aftercare following joint replacement surgery; Z96.652 Presence of left artificial knee joint
CPT/HCPCS: 99214; 73502

== ENCOUNTER 2018-10-11 07:55 | Outpatient (CLI) | payer MEDICARE, BC, SELFPAY ==
[2018-10-11 09:58] LABS: Anion Gap 12.9 mmol/L (3-11); BUN 25 mg/dL (7-18); CO2 22.1 mmol/L (21.0-32.0); CREATININE 1.07 mg/dL (0.70-1.30); Calcium 8.9 mg/dL (8.5-10.1); Chloride 104 mmol/L (98-107); Glucose 117 mg/dL (70-100); Potassium 4.5 mmol/L (3.5-5.1); Sodium 139 mmol/L (136-145)
[2018-10-11 14:50] LABS: HCT 40.9 % (40.0-50.0); HGB 13.5 g/dL (13.5-17.5); Mean Corpuscular Hemoglobin 30.8 pg (27.0-33.0); Mean Corpuscular Volume 93.2 fL (80-95); Mean Platelet Volume 10.2 fL (8.0-11.0); Platelet Count 285 x1000/uL (130-400); RBC 4.39 m/cumm (4.50-6.00); RBC Distribution Width 13.5 % (11.8-14.1); White Blood Cell Count 5.48 k/cumm (4.4-10.8)
== END 2018-10-11 08:15 ==
PROVIDERS: PCP Family Medicine; Visit Provider Student in an Organized Health Care Education/Training Program
DX: M25.552 Pain in left hip (principal); M16.12 Unilateral primary osteoarthritis, left hip; Z01.812 Encounter for preprocedural laboratory examination; Z01.818 Encounter for other preprocedural examination
CPT/HCPCS: 36415; 80048; 85027; 86850; 86900; 86901

== ENCOUNTER 2018-10-17 06:02 | Inpatient (IN) | payer MEDICARE, BC, SELFPAY ==
[2018-10-17] VITALS (13 sets, daily range): BP systolic 95–137; BP diastolic 60–89; PULSE 51–63; RESP 14–18; TEMP 35.6–36.6; O2SAT 96–99
[2018-10-17] MEDS: Acetaminophen 500 MG TAB 1000 MG PO ×2 (06:27→15:51)
[2018-10-17] MEDS: oxyCODONE-CR 10 MG TABCR PO (06:28)
[2018-10-17] MEDS: Celecoxib 200 MG CAP 400 MG PO (06:28)
[2018-10-17] MEDS: Lactated Ringers 1,000 ML 80 ML IV ×2 (06:28→13:22)
--- NOTE | 2018-10-17 07:06 | DI.RAD_ITS ---
SYMPTOM/DIAGNOSIS: OA LEFT HIP LEFT HIP IN O.R.: Fluoroscopy Time: 38.4 Comparison is 10/02/18 Fluoroscopy was utilized by Dr. Fowler during the placement of a left total hip replacement. The orthopaedic hardware appears in good position. Please refer to the procedure report for complete details.
[2018-10-17] MEDS: ceFAZolin 2 GM/50 ML BAG IVPB (07:27)
[2018-10-17] MEDS: Ketorolac 30 MG/ML VIAL (09:36)
[2018-10-17] MEDS: Bupivacaine 0.25% Pres-Free 30 ML VIAL (09:36)
[2018-10-17] MEDS: Normal Saline 50 ML (09:36)
--- NOTE | 2018-10-17 10:50 | DI.RAD_ITS ---
SYMPTOM/DIAGNOSIS: S/P LEFT VIDA AP PELVIS: Comparison is 10/02/18. The patient is now status post left total hip replacement. The orthopaedic hardware appears in good position. The bones are intact. Post surgical changes are seen in the soft tissues IMPRESSION: Status post left THR.
[2018-10-17] MEDS: HYDROmorphone 2 MG/ML VIAL IVP ×2 (10:58→11:33)
--- NOTE | 2018-10-17 13:27 | IN_ITS ---
Date of service: 10/17/18 Time of Service: 13:00 PT Notes Inpatient Physical Therapy Evaluation Date: 10/17/2018 Referring Doctor: Ketan Fowler MD PT Orders: PT CONSULT: Status post left VIDA Precautions: Fall. Standard. Patient Profile/Admitting Diagnosis: Patient is a 68-year-old male with past m edical history significant for lumbar back pain with radiculopathy currently with diagnosis of primary osteoarthritis of left hip, s/p left total hip arthroplasty with anterior approach on postoperative day 0. He is additionally 8 weeks s/p left TKA. PMHX: Strain of right biceps (Acute) Tendonitis of shoulder, right (Chronic) Primary osteoarthritis of left knee (Chronic) Sciatica (Resolved 09/10/12) Peripheral vascular disease (Chronic 07/06/10) Hyperlipidemia (Chronic 07/27/11) History of skin disorder (Chronic 12/24/15) Essential hypertension (Chronic) Elev transaminase/LDH (Chronic 02/26/89) Abnormal fasting glucose (Chronic 07/27/09) Lumbar back pain with radiculopathy affecting left lower extremity (Resolved) Social History/Home Situation: He is a retired banker. Has a [address] on [address] and is in [place] during the winter months. He is an avid skier, hiker, and biker. States that he had resumed biking about 10 miles a day on the [place] after his knee surgery. He's anxious to resume activity. His home is single level, with no steps to enter. Current Functional Limitations: Need for an assistive device for all transfer and ambulation task performance Equipment Owned/DME: FWW Subjective: Patient is agreeable to a physical therapy consult. He states that he feels a little groggy, but otherwise good. Objective: General Observation: Patient resting in bed at initiation of session. Bilateral TEDS on legs. Gr catheter. Supplemental O2 via nasal cannula. Mental Status: Alert and oriented x3 Pain: 1/10 on the left anterior hip ROM: Right Upper Extremity: Shoulder Flexion WFL. Shoulder abduction WFL. Elbow flexion WFL. Wrist flexion WFL. Functional opening and closing of hand WFL. Left Upper Extremity: Shoulder Flexion WFL. Shoulder abduction WFL. Elbow flexion WFL. Wrist flexion WFL. Functional opening and closing of hand WFL. Right Lower Extremity: Hip flexion WFL. Hip abduction WFL. Knee flexion WFL. Ankle dorsiflexion WFL. Ankle plantarflexion WFL. Left Lower Extremity: Patient able to functionally demonstrate hip flexion to 85 degrees. Left knee motion allows 0-110 functionally, as assessed actively with heel slide Strength: Right Upper Extremity: Shoulder flexors 5/5. Shoulder abductors 5/5. Elbow flexors 5/5. Elbow extensors 5/5. Vascular Ultrasound Technician strong. Left Upper Extremity: Shoulder flexors 5/5. Shoulder abductors 5/5. Elbow flexors 5/5. Elbow extensors 5/5. Vascular Ultrasound Technician strong. Right Lower Extremity: Hip flexors 5/5. Hip abductors 5/5. Knee flexors 5/5. Knee extensors 5/5. Ankle dorsiflexors 5/5. Ankle plantarflexors 5/5. Left Lower Extremity:Quads 3/5 or greater. Ankle DF 5/5. Sensation: Intact to light touch on bilateral lower extremities. Bed Mobility/Transfers: Rolling independent Supine to sit independent Sit to supine independent Sit to stand independent Stand to sit independent Bed to chair independent with FWW Chair to bed independent with FWW Gait: Patient tolerated level surface ambulation of 40 feet using FWW requiring only supervision assist from PT, WBAT. Balance: Static Sitting: Good Dynamic Sitting: Good Static Standing: Good Dynamic Standing: Fair Special Tests: Mobility Limitations Standardized Measure [facility] AM-PAC 6 clicks Basic Mobility Inpatient Short Form: Raw Score: 23 CMS Score: 11% deficit Informed Consent/Education: Patient instructed in purpose of PT consult and plan of care. Reviewed home exercise program, and confirmed receipt of postoperative packet. Patient was instructed in ankle pumps, quad sets, glutes sets and heel slides for home completion, 10 reps, 3X/day. Assessment: Patient is a 68-year-old male with past medical history significant for lumbar back pain with radiculopathy currently with diagnosis of primary osteoarthritis of left hip status post left total hip arthroplasty on postoperative day 0. Patient presents with clinical signs and symptoms consistent with current/admitting diagnosis. He is anxious to return home as soon as possible, and has demonstrated sufficient safety and activity tolerance to do so safely once medically cleared. He is appropriate for discharge from PT services in acute care setting. He currently demonstrates the following impairment level findings: 1. Decreased strength left LE 2. Impaired dynamic standing balance 3. Impaired activity tolerance Impairments are contributing to the following functional limitations: 1. Inability to safely ambulate without assistive device and physical assistance 2. Increase completion time for mobility ADL performance 3. Increased fall risk Patient is assessed [place] a 42580 low complexity based on the following: History: Patient is a 68-year-old male s/p left VIAD on post op day 0. Examination: Functional limitations as noted above Presentation: Stable Decision Making: low complexity PLAN: Discharge from PT services in acute care setting. DISCHARGE RECOMMENDATIONS: Home with no equipment needs. TREATMENT CODE/TIME: 90044 x 20 minutes beginning at 1:00 PM. Thank you very much for this referral. Nesha Aragon PT, DPT [facility]
--- NOTE | 2018-10-17 16:48 | W.PM.DS.N ---
Date of service: 10/17/18 Time of Service: 16:48 DS: Diagnosis Discharge Diagnosis (1) Primary osteoarthritis of left hip: Status: Chronic Discharge Plan Disposition Patient Disposition: HOME Condition: Good Discharge Details Reason For Visit: LEFT HIP DJD Admit Date/Time: 10/17/18 06:02 Admit Provider: Ketan Fowler Attending Provider: Ketan Fowler [facility] Course: Patient was admitted to the medical/surgical floor following the procedure. It was tolerated well without any notable medical, surgical, or anesthetic complications. Mobilization began postoperatively. The mckenna catheter was removed and voiding spontaneously. Vitals were stable. Physical therapy worked with the patient and was cleared for discharge home. No acute medical issues. Home Meds and New Rx's Prescriptions: Continued lisinopril 10 mg tablet 10 mg PO DAILY 90 Days Qty: 90 RF: 3 omeprazole 20 mg capsule,delayed release(DR/EC) 20 mg PO Q48H PRN (Reason: reflux) Qty: 90 RF: 3 multivitamin [Daily Vitamin] 1 EACH tablet 1 ea PO DAILY RF: 0 [id number] 1 EACH tablet 2 ea PO DAILY RF: 0 tumeric 1 tab PO DAILY RF: 0 celecoxib 200 mg capsule 200 mg PO BID PRN (Reason: pain) Qty: 60 RF: 1 acetaminophen 500 mg tablet 1,000 mg PO Q8H PRN (Reason: pain) Qty: 90 RF: 3 aspirin 81 mg Tablet,Chewable 81 mg PO DAILY RF: 0 Changed oxycodone 5 mg tablet 5 mg PO Q4H PRN (Reason: Pain) Qty: 18 RF: 0 Discontinued ibuprofen 200 mg Capsule 400 mg PO Q6H PRNRF: 0 Discharge Instructions Additional Instructions: Dr. Fowler?s Total Hip Discharge Instructions Activity: The most important activity is to walk. You should try to take short walks a few times a day. You have no restrictions on movement or positioning, but do not try to force what you do. You will find some stiffness and weakness with hip flexion (lifting your knee). Do not try to strengthen this too early, continue to practice walking and stairs and this will come. - Outpatient physical therapy can be helpful to help return you to a normal gait and improve your flexibility and strength. This can start around 2 weeks. For some patients, it?s not necessary. Usually this is determined at the time of discharge or at the first post-operative visit. - You should wear the WALTER hose on both legs for 2 weeks. Dressing: Keep the surgical dressing in place for at least one week. After the first week it may be removed and replace with light gauze and tape or nothing. It may get wet after 3 days but avoid soaking the dressing. If it gets wet, just lightly pat dry. It is important to always keep some gauze between skin folds, especially when you are sitting. Spend some time with the wound exposed when you are lying flat as the incision does wrinkle onto itself. Medications: - You should take Tylenol and an anti-inflammatory Celebrex as your primary pain control medications - You have been prescribed a stronger pain medication Oxycodone for breakthrough pain, take as needed as prescribed. - You will be taking Aspirin 81mg twice a day for DVT prevention unless instructed otherwise. - If you have constipation you should take Colace or Miralax (both [id number]). It takes most people 3-4 days to have a bowel movement. Follow-up: 2 weeks Referrals: Ketan Fowler MD [ [facility] STAFF PHYSICIAN] - Activity:: Activity as Tolerated Equipment/Supplies:: No Equipment Needed Diet:: Normal Diet Discharge Orders Discharge Orders: Discharge Order (Routine); Ordered 10/17/18 Ordered By: Ketan Fowler DS: Data Vitals/I&O Vitals and I&O: Vital Signs Temperature 36.3 C L 10/17/18 15:21 Temperature Source Tympanic 10/17/18 15:21 Pulse 63 10/17/18 15:21 Pulse Rhythm Regular 10/17/18 06:16 Respiratory Rate 18 10/17/18 15:21 Respiratory Effort 10/17/18 06:16 Respiratory Depth Normal 10/17/18 06:16 Respiratory Pattern Normal 10/17/18 06:16 Blood Pressure 112/65 10/17/18 15:21 Pulse Oximetry 98 10/17/18 15:21 Respiratory End-tidal CO2 30 10/17/18 11:10 Oxygen Delivery Method Room Air 10/17/18 15:21 Oxygen Flow Rate 0 10/17/18 15:21 Pain Level 0 10/17/18 16:33 Intake & Output 10/16/18 10/17/18 10/17/18 23:59 11:59 23:59 Intake Total 1120 / 1332 212 / 1332 Output Total 650 / 950 300 / 950 Balance 470 / 382 -88 / 382 Weight 90.4 kg Intake: IV 870 / 1082 212 / 1082 Oral 250 / 250 Output: Urine 50 / 350 300 / 350 Estimated Blood Loss 600 / 600 Other: Urine Color Yellow Yellow Urine Appearance Clear Emesis Description None PFSH Social History Smoking/Tobacco Use Status: Never Alcohol Intake: current Alcohol Intake frequency: 0-2 drinks per day Drug use: Never Substance use type: does not use Adopted: No Household members: spouse Housing: house Number of Children: 2 current occupation: Banker What type of physical activity do you participate in: regular exercise Duration: 30-45 minutes/day Frequency: 5-6 times per week Seatbelt use: always Drive intox or ride w/intox truck driver teamster: No Working smoke detector in home: Yes Fire extinguisher in home: Yes Carbon monox detector in home: Yes Do you feel safe in your relationship?: Yes
--- NOTE | 2018-10-17 16:51 | ROE_ITS ---
Date of service: 10/17/18 Time of Service: 10:51 Operative Note DATE OF PROCEDURE: 10/17/18 PRE-OP DIAGNOSIS: Left Hip Osteoarthritis POST-OP DIAGNOSIS: same PROCEDURE: Left Anterior Total Hip Arthroplasty SURGEON: Ketan Fowler BALLET DANCER: Modesta Wiseman ANESTHESIA: GETA and spinal ESTIMATED BLOOD LOSS: 600 PATHOLOGY: none sent COMPLICATIONS: None Patient was transported to: PACU Patient's condition: stable Implants: 1. Depuy [place] Acetabular Component, 54mm 2. Depuy Acetabular Liner, 26f04om 3. Depuy Corail Standard Collared Femoral Stem, Size 12 4. Depuy Altrx Ceramic Femoral Head, Size 36+5mm Indications: I have seen Benito in clinic for symptoms of hip arthritis, confirmed with radiographic findings. Benito has exhausted nonoperative methods and was having significant limitations in daily function and desired better function and less pain. I discussed the technical details of a hip replacement. I explained the risks of the procedure to include, but not limited to, bleeding, infection, pain, stiffness, fracture, damage to nerves and vessels, damage to muscles and tendons, loosening, instability, leg length inequality, need for repeat procedure, blood clot and cardiopulmonary demise. Despite these risks, Benito elected to proceed. Findings: There was significant signs of arthritis throughout the hip. These were most notable over the superior femoral head with complete loss of cartilage and exposed subchondral bone. Procedure Description: Benito was greeted in the preoperative holding area where the correct side was identified and marked. The consent was reviewed with the patient and signed. The history and physical was updated. All questions were answered. Benito was taken back to the operating room. A spinal anesthestic was then administered. There was good CSF flow butafter administration, Benito still reported full sensation. The patient was placed into the supine position on the operating room table. The patient was then positioned onto the ARCH table. Both feet were wrapped with Webrill cotton wrap along with Coban. The feet were placed in specialized boots for the ARCH table, well seated within the boot and secured. SCDs were applied. The patient was then slid down onto a peroneal post and the nonoperative leg was secured in a leg rubalcava attached to the table. The operative side was placed into the ARCH table attachment and bed height and positioning was secured. A preoperative AP pelvis was obtained to serve as a reference for determining leg lengths. Prophylactic antibiotics in the form of Cefazolin were administered. 1g of Tranxemic Acid was given intravenously within 30 minutes of incision. The left leg was then prepped with Chloraprep and draped in a standard fashion with a large shower-curtain type drape with Iodine impregnated skin protection. A timeout to confirm correct identity, side and site, procedure, allergies, anesthesia, and medical concerns was performed. Prior to proceeding, the skin of the surgical site was pinched with an Adson forcep and Benito responded. Therefore, he was converted to a general anesthetic with LMA. An obliquely oriented incision was made starting lateral to the ASIS and running distal over the Tensor Fascia Vida (TFL) muscle belly toward the fibular head, approximately 10cm. The skin and soft tissue was dissected sharply, through Tori?s fascia, and to the fascia of the TFL. With the fascia and superior border of the IT band identified, the fascia was incised with a new knife just above any perforators from the IT band. The TFL muscle belly was bluntly dissected away from the fascia and moved laterally. The fat between TFL and rectus was identified to ensure the dissection was not within the TFL. Blunt dissection created space between abductors and the capsule and retractor was placed over the lateral femoral neck. The fibers of the rectus femoris tendon were identified and these were freed from the anterior capsule. A second cobra retractor was placed around the medial femoral neck. The TFL was further retracted laterally to show the deep fascia. Careful dissection through this layer identified three main crossing vessels of the lateral femoral circumflex. These were cauterized in multiple locations and then cut without any noticeable bleeding. The TFL was further released bluntly from the deep fascia to expose anterior hip capsule and fat The Antony orthopaedic retractor was then placed beneath the TFL and against sartorius and medial soft tissues to protect and retract the soft tissues. A T-capsulotomy was then performed starting at the superior lateral acetabulum and moving distally to the intertrochanteric ridge. These capsular flaps were tagged with a No. 1 Ethibond and elevated from within. The capsular flaps were released to the shoulder of the lateral neck and to the lesser trochanter to give excellent visualization of the proximal femur. A neck osteotomy was performed using an oscillating saw based on preoperative templates. This cut started in the shoulder and of the lateral neck and exited medially. The saw was at all times directed medially to avoid injury to the greater trochanter. 6cm of traction was applied to the leg and the osteotomy opened. The femoral head was removed with a corkscrew, making sure to protect the TFL on its exit. This was measured on the back table to determing the starting reamer size. Portions of the rectus obscuring visualization were minimally elevated off the superior acetabulum. An anterior retractor was placed over the anterior wall between capsule and labrum. A posterior retractor was placed similarly. This provided excellent visualization. The contents of the cotyloid fossa were removed with electrocautery and the labrum was removed with a knife. There was a notable floor osteophyte. There was significant chondromalacia of the superior acetabulum and superior femoral head. Acetabular reaming began with a 49mm reamer. This first reaming was directed anterior to posterior and medial to get down to the true floor. This was inspected and reamed until the true floor was reached. I then reamed sequentially up to a 47mm reamer where good fit was obtained. The larger reamers were oriented based on anatomical reference of the anterior and lateral hayes to ensure proper abduction and anteversion. Positioning and size was confirmed with the fluoroscopy. A 53mm Depuy [place] acetabular component was selected. The acetabulum was reamed around the periphery with the selected acetabular size to prevent a rim fit. The deep tissues were irrigated. The acetabular component was then impacted in a position of about 40-45 degrees of abduction and 15-20 degrees of anteversion, using the patient?s anatomy as the ultimate landmark. Fluoroscopy was used to confirm this. There was excellent oil field pumper of the acetabular component and the inserting handle was removed. The acetabular liner, Depuy 76u16ed polyethylene liner, was inserted and lined up with the tines of the acetabular component. There was no soft tissue interposition. The liner was then impacted into position and confirmed to be well-seated. A portion of the kim-articular cocktail was then injected around the acetabulum into the capsule and periosteum. This cocktail consisted of 50cc of 0.25% Bupivicaine and 20cc of Exparel, expanded to a total of 120cc. Traction was released from the femur. The leg was rotated to 120 degrees. Any remaining medial capsule was released until the lesser trochanter was easily palpable. A Bridges retractor was placed medially. The lateral capsule was further released into the shoulder to allow access to the greater trochanter. A Bridges retractor was placed over the greater trochanter which allowed the trochanter to flip in front of the capsule for excellent exposure. The leg was brought down into maximal extension and 20 degrees of adduction while ensuring there was no impingement on the acetabulum. Any remnant capsule within the trochanter was released. Piriformis and obturator externis were identified and protected. There was excellent access to the proximal femur. The lateral neck remnant was removed with a rongeur. A blunt canal probe was used to identify the canal and trajectory for later broaching. A box osteotome initiated the broach course. A small curved rasp and a curved curette were used to work laterally. Broaching then began with a size 8 Corail broach. This was inserted manually around the trochanter and into the canal before mallet blows. The broach was seated to a few millimeters below the cut level based on the neck cut and the preoperative template. Sequential broaching was continued until a tight fit was obtained with good rotational control of the femur. A trial standard neck was inserted along with a +5 trial head. The leg was brought out of extension and adduction and then reduced with traction and internal rotation. The leg was stable anteriorly in a position of 30 degrees of extension and 90 degrees of external rotation. Fluoroscopy was used to ensure there was no fracture and the stem was seated well. Leg lengths were checked with an AP pelvis and pelvic reference points. Once content with the desired offset and leg lengths, the leg was brought back into extension, external rotation and adduction. The periosteum and surrounding tissue was injected with remaining portion of the kim-articular cocktail. The proximal femur was irrigated as well as the deep tissues. The Depuy Corail standard collared stem, size 12, was then manually inserted into the proximal femur making sure to control rotation. It was then malleted into position with light blows, giving breaks to allow bone expansion and decrease risk of fracture. The selected Depuy Altrx Ceramic Head, size 36+5mm, was then placed onto the clean and dry trunnion and secured with impaction onto the tapered fit. The leg was brought back out of extension and adduction and reduced with traction and internal rotation. Stability was confirmed with no shuck at 90 degrees of external rotation and 30 degrees of extension. No impingement through range of motion arc. Final x-ray images were obtained with fluoroscopy to confirm adequate positioning and no intraoperative fracture. The deep tissues were thoroughly irrigated with a pulse lavage. The second dose of TXA 1g was administered intravenously. The capsule was then reapproximated with the previously placed Ethibond sutures. The TFL fascia was finally closed with a No. 2 Stratafix, barbed suture. Deep tissues were then reapproximated with 0 Vicryl and a running 2-0 Vicryl. The skin was closed with a running 4-0 Monocryl in a subcuticular fashion. This was reinforced with skin glue. A Mepilex silver dressing was applied. At the end of the case, all counts were correct. Benito was transferred to the hospital bed without difficulty and suffering no apparent complication. Benito has a good prognosis. Physical therapy will start today and without restrictions, weight-bearing as tolerated. Aspirin 81mg BID will be used for DVT prophylaxis.
== END 2018-10-17 17:45 | disposition home or self-care (01) | DRG 470 ==
LOC: PDS 06:08 → MS 10:27
PROVIDERS: Admitting Provider Student in an Organized Health Care Education/Training Program; PCP Family Medicine; Visit Provider Student in an Organized Health Care Education/Training Program
PROC: 0SRB04A Replacement of Left Hip Joint with Ceramic on Polyethylene Synthetic Substitute, Uncemented, Open Approach (ICD-10-PCS; CPT 27130; principal; 2018-10-17 07:30)
DX: M16.12 Unilateral primary osteoarthritis, left hip (principal); M25.552 Pain in left hip; Z96.642 Presence of left artificial hip joint; Z96.652 Presence of left artificial knee joint
CPT/HCPCS: 27130; 97161; NC; 72170; 73501; J0690; J1100; J1885; J2250; J2405

== ENCOUNTER 2018-11-04 11:41 | Outpatient (CLI) | payer MEDICARE, BC, SELFPAY ==
--- NOTE | 2018-11-04 11:07 | DI.RAD_ITS ---
SYMPTOM/DIAGNOSIS: F/U VIDA LEFT HIP: 11/04 Two views were obtained and show total hip joint replacement in position. Components appear well seated. Moderate degenerative changes of the right hip noted.
== END 2018-11-04 12:01 ==
PROVIDERS: PCP Family Medicine; Referring Provider Family Medicine; Visit Provider Student in an Organized Health Care Education/Training Program
DX: M16.12 Unilateral primary osteoarthritis, left hip (principal); Z96.642 Presence of left artificial hip joint; Z47.1 Aftercare following joint replacement surgery
CPT/HCPCS: 73502

== ENCOUNTER → 2018-12-05 09:39 | Outpatient (BNVA) | payer MEDICARE, BC, SELFPAY | PROVIDERS: PCP Family Medicine; Referring Provider Family Medicine; Visit Provider Student in an Organized Health Care Education/Training Program | DX: Z47.1 Aftercare following joint replacement surgery (principal); Z96.642 Presence of left artificial hip joint; I10 Essential (primary) hypertension ==

== ENCOUNTER 2019-07-24 11:27 | Outpatient (CLI) | payer MEDICARE, BC, SELFPAY ==
--- NOTE | 2019-07-24 09:42 | DI.RAD_ITS ---
EXAM: XR HIP RT COMPLETE AP PELVIS INDICATION: HIP PAIN. COMPARISON: CR XR hip LT AP lat only from 11/04/2018 TECHNIQUE: 2D digital imaging was performed. FINDINGS: There has been no change in the left hip prosthesis. There is narrowing of the superior right hip trish int space which is now severe, worsening when compared with the previous exam. There is moderate per iarticular spurring. The SI joints show mild spurring. IMPRESSION: Worsening degenerative changes of the right hip. DATA REPOSITORY: RADIATION DOSE DELIVERED:
--- NOTE | 2019-07-24 09:45 | DI.RAD_ITS ---
EXAM: XR KNEE LT 3V AP,LAT,VERONICA INDICATION: HISTORY OF TKR. COMPARISON: CR XR knee LT 1V from 09/04/2018 TECHNIQUE: 2D digital imaging was performed. FINDINGS: There has been no change in the total knee prosthesis. No abnormal bony lucencies are seen. The david cifications are noted in the suprapatellar region. Vascular calcifications are also seen. IMPRESSION: Stable appearance of the left knee. DATA REPOSITORY: RADIATION DOSE DELIVERED:
== END 2019-07-24 11:47 ==
PROVIDERS: PCP Family Medicine; Referring Provider Family Medicine; Visit Provider Student in an Organized Health Care Education/Training Program
DX: Z96.652 Presence of left artificial knee joint (principal); Z47.1 Aftercare following joint replacement surgery; Z96.642 Presence of left artificial hip joint; M16.11 Unilateral primary osteoarthritis, right hip
CPT/HCPCS: 73562; 99214; 73502

== ENCOUNTER 2019-07-25 02:07 | Outpatient (CLI) | payer MEDICARE, BC, SELFPAY ==
[2019-07-25 12:04] LABS: HCT 41.3 % (40.0-50.0); HGB 14.1 g/dL (13.5-17.5); Mean Corp. HGB Concentration 34.1 g/dL (32.0-36.0); Mean Corpuscular Hemoglobin 31.3 pg (27.0-33.0); Mean Corpuscular Volume 91.8 fL (80-95); Mean Platelet Volume 9.7 fL (8.0-11.0); Platelet Count 277 x1000/uL (130-400); White Blood Cell Count 6.64 k/cumm (4.4-10.8)
[2019-07-25 13:08] LABS: Anion Gap 9.3 mmol/L (3-11); BUN 31 mg/dL (7-18); CO2 24.7 mmol/L (21.0-32.0); CREATININE 1.24 mg/dL (0.70-1.30); Calcium 9.5 mg/dL (8.5-10.1); Chloride 104 mmol/L (98-107); Estimated GFR 57.63 (mL/min/1.73m2); Glucose 115 mg/dL (74-106); Potassium 4.4 mmol/L (3.5-5.1); Sodium 138 mmol/L (136-145)
== END 2019-07-25 02:27 ==
PROVIDERS: PCP Family Medicine; Visit Provider Student in an Organized Health Care Education/Training Program
DX: M25.551 Pain in right hip (principal); M16.11 Unilateral primary osteoarthritis, right hip; Z01.818 Encounter for other preprocedural examination; Z01.812 Encounter for preprocedural laboratory examination
CPT/HCPCS: 36415; 80048; 85027; 86850; 86900; 86901; U0003

== ENCOUNTER 2019-07-25 08:03 | Outpatient (CLI) | payer MEDICARE, BC, SELFPAY ==
[2019-07-26 12:19] LABS: COVID-19 RT-PCR UVMMC Result Negative (Negative)
== END 2019-07-25 08:23 ==
PROVIDERS: PCP Family Medicine; Visit Provider Student in an Organized Health Care Education/Training Program
DX: Z11.59 Encounter for screening for other viral diseases (principal); Z01.818 Encounter for other preprocedural examination
CPT/HCPCS: U0003

== ENCOUNTER 2019-07-29 07:29 | Observation (INO) | payer MEDICARE, BC, SELFPAY ==
[2019-07-29] VITALS (9 sets, daily range): BP systolic 94–155; BP diastolic 47–90; PULSE 57–63; RESP 13–20; TEMP 36–36.4; O2SAT 95–100
[2019-07-29] MEDS: Celecoxib 200 MG CAP 400 MG PO (08:13)
[2019-07-29] MEDS: Acetaminophen 500 MG TAB 1000 MG PO ×2 (08:13→14:06)
[2019-07-29] MEDS: Lactated Ringers 1,000 ML 80 ML IV (08:20)
[2019-07-29] MEDS: ceFAZolin 2 GM/50 ML BAG IVPB (08:22)
--- NOTE | 2019-07-29 10:30 | DSE_ITS ---
Date of service: 07/29/19 Time of Service: 13:49 DS: Diagnosis Discharge Diagnosis (1) Osteoarthritis of right hip: Status: Acute Discharge Plan Disposition Patient Disposition: HOME Condition: Good Discharge Details Reason For Visit: (R) TOTAL HIP Admit Date/Time: 07/29/19 07:29 Admit Provider: Ketan Fowler Attending Provider: Ketan Fowler [facility] Course: Patient was admitted to the medical/surgical floor following the procedure. The surgery was tolerated well without any notable medical, surgical, or anesthetic complications. Mobilization began postoperatively. He was voiding spontaneously. Vitals were stable. Physical therapy worked with the patient an d was cleared for discharge home. No acute medical issues. Pain was controlled on oral regimen. Home Meds and New Rx's Prescriptions: New acetaminophen 500 mg tablet 1,000 mg PO Q8H PRN (Reason: pain) Qty: 90 RF: 3 oxycodone 5 mg tablet 5 mg PO Q4H Qty: 12 RF: 0 celecoxib 200 mg capsule 200 mg PO BID PRN (Reason: pain) Qty: 60 RF: 1 Continued multivitamin [Daily Vitamin] 1 EACH tablet 1 ea PO DAILY RF: 0 [id number] 1 EACH tablet 2 ea PO DAILY RF: 0 tumeric 1 tab PO DAILY RF: 0 lisinopril 10 mg tablet 10 mg PO DAILY 90 Days Qty: 90 RF: 3 omeprazole 20 mg capsule,delayed release(DR/EC) 20 mg PO Q48H PRN (Reason: reflux) Qty: 90 RF: 3 calcium carbonate [Tums] 200 mg calcium (500 mg) Tablet,Chewable 200 mg PO BID RF: 0 Changed aspirin 81 mg Tablet,Chewable 81 mg PO BID Qty: 60 RF: 0 Discontinued ibuprofen [Advil] 200 mg Tablet 400 mg PO Q6H PRNRF: 0 Discharge Instructions Additional Instructions: Dr. Fowler's Total Hip Discharge Instructions Activity: The most important activity is to walk. You should try to take short walks a few times a day. You have no restrictions on movement or positioning, but do not try to force what you do. You will find some stiffness and weakness with hip flexion (lifting your knee). Do not try to strengthen this too early, continue to practice walking and stairs and this will come. - Outpatient physical therapy can be helpful to help return you to a normal gait and improve your flexibility and strength. This can start around 2 weeks. For most patients, it?s not necessary. Usually this is determined at the time of discharge or at the first post-operative visit. - You should wear the WALTER hose on both legs for 2 weeks. You may remove those at night. These prevent blood pooling and swelling. Dressing: Keep the surgical dressing in place for at least one week, although it may stay in place untill follow-up. It may get wet after 3 days but avoid soaking the dressing. If it gets wet, just lightly pat dry. Most people prefer to cover the dressing with some ClingWrap, Saran Wrap, to keep it dry. After the first week it may be removed if desired and then replaced with light gauze and tape or nothing. It is important to always keep some gauze or the dressing between skin folds, especially when you are sitting, so the incision is not folded over on itself at the belly fold. Medications: - You should take Tylenol and an anti-inflammatory Celebrex as your primary pain control medications - You have been prescribed a stronger pain medication Oxycodone for breakthrough pain, take as needed as prescribed. - You will continue Omeprazole to help reduce stomach acid and reflux. - You will be taking Aspirin 81mg twice a day for DVT prevention unless instructed otherwise. - If you have constipation you should take Colace or Miralax (both [id number]). It takes most people 3-4 days to have a bowel movement. Follow-up: 2 weeks. If you have any acute concerns or questions, please do not hesitate to contact the office at [phone]. You may contact Dr. Fowler with any questions after hours through the hospital at [phone] or on his cell phone at [phone]. Referrals: Ketan Fowler MD [ [facility] STAFF PHYSICIAN] - Activity:: Activity as Tolerated Equipment/Supplies:: No Equipment Needed Diet:: As Tolerated Discharge Orders Discharge Orders: Discharge Order (Routine); Ordered 07/29/19 Ordered By: Ketan Fowler DS: Summary Status at Discharge Functional status at discharge: uses cane/walker Overall status at discharge: patient is progressing back to baseline Mental Status: mental status grossly normal Speech and Movement: speech and movement normal Mood: congruent mood Affect: normal affect Exam Psych Mental Status: mental status grossly normal Speech and Movement: speech and movement normal Mood: congruent mood Affect: normal affect DS: Data Vitals/I&O Vitals and I&O: Vital Signs Temperature 36.3 C L 07/29/19 07:55 Pulse 62 07/29/19 07:55 Pulse Rhythm Regular 07/29/19 07:55 Respiratory Rate 07/29/19 07:55 Respiratory Effort 07/29/19 07:55 Blood Pressure 155/90 H 07/29/19 07:55 Pulse Oximetry 98 07/29/19 07:55 Oxygen Delivery Method Room Air 07/29/19 07:55 Oxygen Flow Rate 0 07/29/19 07:55 Pain Level 2 07/29/19 07:55 Intake & Output 07/28/19 07/28/19 07/29/19 11:59 23:59 11:59 Weight 93 kg [facility] Medical History Abnormal fasting glucose (Chronic 07/27/09) A1c 5.8 07/2009; high FBS 127, HbA1c 6.1 (09/2013) Elev transaminase/LDH (Chronic 02/26/89) W/U US 2001 2004; GGT elevated with min elevation AST; neg Hep C, HepB, Iron; likely fatty liver Essential hypertension (Chronic) History of skin disorder (Chronic 12/24/15) h/o dysplastic nevus, h/o severe atypia L ear: f/u Dr Landaverde q 2-3 yr, last 11/2014 Hyperlipidemia (Chronic 07/27/11) 2007 RISK 15%; goal LDL <130; impaired FBS; ?carotid plaque, RX start 2006 lovastatin Lumbar back pain with radiculopathy affecting left lower extremity (Resolved) Osteoarthritis of right hip (Acute) Peripheral vascular disease (Chronic 07/06/10) Moderate plaque carotid on [employer] screening 06/2010 Primary osteoarthritis of left knee (Resolved) Sciatica (Resolved 09/10/12) H/O 1984; FLAIRED 07/2012 L epidural, traction, acupuncture; 08/2013 L sciatica, Neuro consult.; Dr aHrt Strain of right biceps (Acute) Tendonitis of shoulder, right (Chronic) Surgical History CARPAL TUNNEL (08/04/16) OPEN--LEFT WRIST--DR. HERNANDES first, then right H/O arthroscopy of knee (Acute) right, and twice on left History of knee replacement (Chronic) Left knee History of total left hip replacement (Acute 10/17/18) Dr. Fowler Hx of eye surgery (Acute) 80's per pt pigment was outside of iris. Hx of tonsillectomy (Chronic) as a child Lumbar Epidural Steroid Injection (08/28/16) [facility] Dr Polly Bernstein Lumbar Epidural Steroid Injection (12/05/16) [facility] Dr Polly Bernstein Lumbar Epidural Steroid Injection (03/06/17) [facility] Dr Polly Bernstein Open Carpal Tunnel release (10/07/14) R Dr Hernandes S/P trigger finger release (Acute 06/09/11) right - at least two trigger releases Trigger Finger release (08/04/16) LEFT RING--DR. HERNANDES Family History Mother , Alzheimer at age 96. Alzheimer's dementia Father , age 82 Kidney disease Hyperlipidemia Brother Essential hypertension Sister Anxiety Maternal Grandmother Essential hypertension Other Alcohol abuse Social History Smoking/Tobacco Use Status: Current-Occasional Alcohol Intake: current Alcohol Intake frequency: 0-2 drinks per day Drug use: Never Substance use type: does not use Adopted: No Household members: spouse Housing: house Number of Children: 2 Communication Needs: None Do you need help understanding health information?: Never current occupation: Banker What is your relationship status?: Panel score (0-1 are the most socially isolated patients): 1 What type of physical activity do you participate in: regular exercise Duration: 30-45 minutes/day Frequency: 5-6 times per week Seatbelt use: always Drive intox or ride w/intox experienced truck driver: No Working smoke detector in home: Yes Fire extinguisher in home: Yes Carbon monox detector in home: Yes Do you feel safe at home: Yes Do you feel safe in your relationship?: Yes
[2019-07-29] MEDS: Bupivacaine 0.25% Pres-Free 30 ML VIAL (11:01)
[2019-07-29] MEDS: Ketorolac 30 MG/ML VIAL (11:01)
--- NOTE | 2019-07-29 12:00 | DI.RAD_ITS ---
EXAM: XR HIP RT IN OR CLINICAL HISTORY: OA RIGHT HIP TECHNIQUE: 2D and realtime digital imaging was performed. Fluoroscopy was provided in the OR COMPARISON: No exams were available for comparison FINDINGS: C-arm fluoroscopy was utilized by Dr. Fowler during reported right hip joint replacement. Hard copy messenger y shows placement of right total hip joint prosthesis. Fluoroscopy time was 76 seconds. IMPRESSION: RADIATION DOSE DELIVERED: Total DLP
--- NOTE | 2019-07-29 13:52 | W.PM.OP ---
Date of service: 07/29/19 Time of Service: 12:52 Operative Note Operative Note DATE OF PROCEDURE: 07/29/19 PRE-OP DIAGNOSIS: Right Hip Osteoarthritis POST-OP DIAGNOSIS: same PROCEDURE: Right Anterior Total Hip Arthroplasty SURGEON: Ketan Fowler RADIO PERFORMER: Serge Murrieta ANESTHESIA: spinal ESTIMATED BLOOD LOSS: 150 PATHOLOGY: none sent COMPLICATIONS: None Patient was transported to: PACU Patient's condition: stable Implants: 1. Depuy [place] Acetabular Component, 54mm 2. Depuy Acetabular Liner, [id number] 3. Depuy Corail Standard Collared Femoral Stem, Size 11 4. Depuy Altrx Ceramic Femoral Head, Size 36+5mm Indications: I have seen Benito in clinic for symptoms of hip arthritis, confirmed with radiographic findings. He has exhausted nonoperative methods and was having significant limitations in daily function and desired better function and less pain. I discussed the technical details of a hip replacement. I explained the risks of the procedure to include, but not limited to, bleeding, infection, pain, stiffness, fracture, damage to nerves and vessels, damage to muscles and tendons, loosening, instability, leg length inequality, need for repeat procedure, blood clot and cardiopulmonary demise. Despite these risks, Benito elected to proceed. Findings: There was significant signs of arthritis throughout the hip. Procedure Description: Benito was greeted in the preoperative holding area where the correct side was identified and marked. The consent was reviewed with the patient and signed. The history and physical was updated. All questions were answered. He was taken back to the operating room. A spinal anesthestic was then administered. The patient was placed into the supine position on the operating room table. The patient was then positioned onto the ARCH table. Both feet were wrapped with Webrill cotton wrap along with Coban. The feet were placed in specialized boots for the ARCH table, well seated within the boot and secured. SCDs were applied. The patient was then slid down onto a peroneal post and the nonoperative leg was secured in a leg rubalcava attached to the table. The operative side was placed into the ARCH table attachment and bed height and positioning was secured. A preoperative AP pelvis was obtained to serve as a reference for determining leg lengths. Prophylactic antibiotics in the form of cefazolin were administered. 1g of Tranxemic Acid was given intravenously within 30 minutes of incision. The right leg was then prepped with Chloraprep and draped in a standard fashion. A second prep with Chloraprep was performed prior to placement of a shower-curtain type drape with Iodine impregnated skin protection. A timeout to confirm correct identity, side and site, procedure, allergies, anesthesia, and medical concerns was performed. An obliquely oriented incision was made starting lateral to the ASIS and running distal over the Tensor Fascia Vida (TFL) muscle belly toward the fibular head, approximately 10cm. The skin and soft tissue was dissected sharply, through Tori?s fascia, and to the fascia of the TFL. With the fascia and superior border of the IT band identified, the fascia was incised with a new knife just above any perforators from the IT band. The TFL muscle belly was bluntly dissected away from the fascia and moved laterally. The fat between TFL and rectus was identified to ensure the dissection was not within the TFL. Blunt dissection created space between abductors and the capsule and retractor was placed over the lateral femoral neck. The fibers of the rectus femoris tendon were identified and these were freed from the anterior capsule. A second cobra retractor was placed around the medial femoral neck. The TFL was further retracted laterally to show the deep fascia. Careful dissection through this layer identified three main crossing vessels of the lateral femoral circumflex. These were cauterized in multiple locations and then cut without any noticeable bleeding. The TFL was further released bluntly from the deep fascia to expose anterior hip capsule and fat the Antony orthopaedic retractor was then placed beneath the TFL and against sartorius and medial soft tissues to protect and retract the soft tissues. A T-capsulotomy was then performed starting at the superior lateral acetabulum and moving distally to the intertrochanteric ridge. These capsular flaps were tagged with a No. 1 Ethibond and elevated from within. The capsular flaps were released to the shoulder of the lateral neck and to the lesser trochanter to give excellent visualization of the proximal femur. A neck osteotomy was performed using an oscillating saw based on preoperative templates. This cut started in the shoulder and of the lateral neck and exited medially. The saw was at all times directed medially to avoid injury to the greater trochanter. 6cm of traction was applied to the leg and the osteotomy opened. The femoral head was removed with a corkscrew, making sure to protect the TFL on its exit. This was measured on the back table to determing the starting reamer size. Portions of the rectus obscuring visualization were minimally elevated off the superior acetabulum. An anterior retractor was placed over the anterior wall between capsule and labrum and attached to the Gripper retraction system. A posterior retractor was placed similarly. This provided excellent visualization. The contents of the cotyloid fossa were removed with electrocautery and the labrum was removed with a knife. There was a notable floor osteophyte. There was significant chondromalacia of the superior acetabulum. Acetabular reaming began with a 48 mm reamer. This first reaming was directed anterior to posterior and medial to get down to the true floor. This was inspected and reamed until the true floor was reached. The anterior retractor was then released and entry and exit was provided by traction on the capsular flaps. I then reamed sequentially up to a 54 mm reamer where good fit was obtained. The larger reamers were oriented based on anatomical reference of the anterior and lateral hayes to ensure proper abduction and anteversion. Positioning and size was confirmed with the fluoroscopy. A 54 mm Depuy [place] acetabular component was selected. The deep tissues were irrigated. The acetabular component was then impacted in a position of about 40-45 degrees of abduction and 15-20 degrees of anteversion, using the patient?s anatomy as the ultimate landmark. Fluoroscopy was used to confirm this. There was excellent cellular plastics cutter of the acetabular component and the inserting handle was removed. The acetabular liner, Depuy 54 x 36 mm polyethylene liner, was inserted and lined up with the tines of the acetabular component. There was no soft tissue interposition. The liner was then impacted into position and confirmed to be well-seated. A portion of the kim-articular cocktail was then injected around the acetabulum into the capsule and periosteum. This cocktail consisted of 50cc of 0.25% Bupivicaine and 20cc of Exparel, expanded to a total of 120cc. Traction was released from the femur. The leg was rotated to 120 degrees. Any remaining medial capsule was released until the lesser trochanter was easily palpable. A Bridges retractor was placed medially. The lateral capsule was further released into the shoulder to allow access to the greater trochanter. A Bridges retractor was placed over the greater trochanter which allowed the trochanter to flip in front of the capsule for excellent exposure. The leg was brought down into maximal extension and 20 degrees of adduction while ensuring there was no impingement on the acetabulum. Any remnant capsule within the trochanter was released. Piriformis and obturator externis were identified and protected. There was excellent access to the proximal femur. The lateral neck remnant was removed with a rongeur. A blunt canal probe was used to identify the canal and trajectory for later broaching. A box osteotome initiated the broach course. A small curved rasp and a curved curette were used to work laterally. Broaching then began with a size 8 Corail broach. This was inserted manually around the trochanter and into the canal before mallet blows. The broach was seated to the neck cut level based on the neck cut and the preoperative template. Sequential broaching was continued with the Sling Media pneumatic broaching device until a tight fit was obtained with good rotational control of the femur. A trial high offset neck was inserted along with a +1 trial head. The leg was brought out of extension and adduction and then reduced with traction and internal rotation. The leg was stable anteriorly in a position of 30 degrees of extension and 90 degrees of external rotation. Fluoroscopy was used to ensure there was no fracture and the stem was seated well. Leg lengths were checked with an AP pelvis and pelvic reference points. Opendisc navigation system was used to confirm appropriate positioning and leg length and offset. This indicated that was lengthening by 1 mm but had about 6 mm of extra offset. Visually, it looked like it was a little longer than that. The goal was to lengthen by about 5 to 6 mm given his preoperative status although his hip x-rays did not seem to be that far off. Therefore, based on the joint point table, the standard offset neck with a +5 head would provide no change in offset and about 5 mm in leg length. Once content with the desired offset and leg lengths, the leg was brought back into extension, external rotation and adduction. The periosteum and surrounding tissue was injected with remaining portion of the kim-articular cocktail. The proximal femur was irrigated as well as the deep tissues. The Depuy Corail standard collared stem, size 11, was then manually inserted into the proximal femur making sure to control rotation. It was then malleted into position with light blows, giving breaks to allow bone expansion and decrease risk of fracture. The selected Depuy Altrx Ceramic Head, size 36+5 mm, was then placed onto the clean and dry trunnion and secured with impaction onto the tapered fit. The leg was brought back out of extension and adduction and reduced with traction and internal rotation. Stability was confirmed with no shuck at 90 degrees of external rotation and 30 degrees of extension. No impingement through range of motion arc. Final x-ray images were obtained with fluoroscopy to confirm adequate positioning and no intraoperative fracture. The deep tissues were thoroughly irrigated with Irrisept chlorhexadine solution. The second dose of TXA 1g was administered intravenously. The capsule was then reapproximated with the previously placed Ethibond sutures. The TFL fascia was finally closed with a No. 2 Stratafix, barbed suture. Deep tissues were then reapproximated with 0 Vicryl and a running 2-0 Vicryl. The skin was closed with a running 4-0 Monocryl in a subcuticular fashion. This was reinforced with skin glue. A Mepilex silver dressing was applied. At the end of the case, all counts were correct. Benito was transferred to the hospital bed without difficulty and suffering no apparent complication. Benito has a good prognosis. Physical therapy will start today and without restrictions, weight-bearing as tolerated. Aspirin 81mg BID will be used for DVT prophylaxis.
[2019-07-29] MEDS: ceFAZolin 1 GM/50 ML BAG IVPB (14:06)
--- NOTE | 2019-07-29 14:52 | PT.INIE ---
Date of service: 07/29/19 PT Notes Visit Reasons: (R) TOTAL HIP Physical Therapy Inpatient Initial Evaluation Date: 07/29/2019 Referring Doctor: Ketan Fowler MD PT Orders: PT CONSULT: S/P ortho surgery. Status post R VIDA. Precautions: Fall. Standard. WBAT on R LE. Activity as tolerated. Patient Profile/Admitting Diagnosis: Patient is [id number] male with osteoarthritis of the right hip status post right total hip arthroplasty on postoperative day 1. PMHX: Medical History Abnormal fasting glucose (Chronic 07/27/09) A1c 5.8 07/2009; high FBS 127, HbA1c 6.1 (09/2013) Elev transaminase/LDH (Chronic 02/26/89) W/U US 2001 2004; GGT elevated with min elevation AST; neg Hep C, HepB, Iron; likely fatty liver Essential hypertension (Chronic) History of skin disorder (Chronic 12/24/15) h/o dysplastic nevus, h/o severe atypia L ear: f/u Dr Landaverde q 2-3 yr, last 11/2014 Hyperlipidemia (Chronic 07/27/11) 2007 RISK 15%; goal LDL <130; impaired FBS; ?carotid plaque, RX start 2006 lovastatin Lumbar back pain with radiculopathy affecting left lower extremity (Resolved) Osteoarthritis of right hip (Acute) Peripheral vascular disease (Chronic 07/06/10) Moderate plaque carotid on [employer] screening 06/2010 Primary osteoarthritis of left knee (Resolved) Sciatica (Resolved 09/10/12) H/O 1984; FLAIRED 07/2012 L epidural, traction, acupuncture; 08/2013 L sciatica, Neuro consult.; Dr Hart Strain of right biceps (Acute) Tendonitis of shoulder, right (Chronic) Surgical History CARPAL TUNNEL (08/04/16) OPEN--LEFT WRIST--DR. HERNANDES first, then right H/O arthroscopy of knee (Acute) right, and twice on left History of knee replacement (Chronic) History of total left hip replacement (Acute 10/17/18) Dr. Fowler Hx of eye surgery (Acute) 80's per pt pigment was outside of iris. Hx of tonsillectomy (Chronic) as a child Lumbar Epidural Steroid Injection (08/28/16) [facility] Dr Polly Bernstein Lumbar Epidural Steroid Injection (12/05/16) [facility] Polly Bernstein Lumbar Epidural Steroid Injection (03/06/17) [facility] Dr Polly Bernstein Open R Carpal Tunnel release (10/07/14) Dr Hernandes S/P trigger finger release (Acute 06/09/11) right - at least two trigger releases Trigger Finger release (08/04/16) LEFT RING--DR. HERNANDES Social History/Home Situation: Lives with in a single level home with 3 steps to enter without rails. He is a retired banker. Has a home near [facility] and is in [place] during the winter months. He is an avid skier. I with all ADLs without AD nor adaptive equipment. Equipment Owned/DME: [facility] Subjective: I feel a little woozy but I will be fine. Towards the end of his walk, he stated The stretched muscle on the front of my thigh I can feel right now Objective: General Observation: Mepilex Ag over surgical incision. Bilateral TEDS on legs. Mental Status: Alert and oriented x4 Pain: 1-2/10 on R anterior thigh ROM: Right Upper Extremity: Shoulder Flexion WFL. Shoulder abduction WFL. Elbow flexion WFL. Wrist flexion WFL. Functional opening and closing of hand WFL. Left Upper Extremity: Shoulder Flexion WFL. Shoulder abduction WFL. Elbow flexion WFL. Wrist flexion WFL. Functional opening and closing of hand WFL. Right Lower Extremity: Hip flexion WFL. Hip abduction WFL. Knee flexion WFL. Ankle dorsiflexion WFL. Ankle plantarflexion WFL. Left Lower Extremity: Hip flexion WFL. Hip abduction WFL. Knee flexion WFL. Ankle dorsiflexion WFL. Ankle plantarflexion WFL. Strength: Right Upper Extremity: Shoulder flexors 5/5. Shoulder abductors 5/5. Elbow flexors 5/5. Elbow extensors 5/5. Mental Health Program Manager strong. Left Upper Extremity: Shoulder flexors 5/5. Shoulder abductors 5/5. Elbow flexors 5/5. Elbow extensors 5/5. Mental Health Program Manager strong. Right Lower Extremity: Hip flexors 4/5. Hip abductors 4/5. Knee flexors 4/5. Knee extensors 4/5. Ankle dorsiflexors 5/5. Ankle plantarflexors 5/5. Left Lower Extremity:Hip flexors 5/5. Hip abductors 5/5. Knee flexors 3-/5. Knee extensors 3-/5. Ankle dorsiflexors 5/5. Ankle plantarflexors 5/5. Sensation: Intact as to pain and pressure on bilateral lower extremities. Bed Mobility/Transfers: Supine to sit modified independent Sit to supine modified independent Sit to stand supervision using B UE for support, requires use of front walker Stand to sit supervision using B UE for support Bed to chair supervision using B UE for support, requires use of front walker Chair to bed supervision using B UE for support, requires use of front walker Gait: Patient tolerated level surface ambulation of 260 feet + 200 feet using FWW requiring only supervision assist from, WBAT on R LE. Swing through gait pattern. Reported some minor discomfort with his stretched quads that disappeared with rest. Balance: Static Sitting: Good Dynamic Sitting: Good Static Standing: Good Dynamic Standing: Fair Special Tests: Mobility Limitations Standardized Measure [facility] AM-PAC 6 clicks Basic Mobility Inpatient Short Form: Raw Score: 23 CMS Score: 11% deficit Informed Consent/Education: Patient instructed in purpose of PT consult and plan of care. Assessment: Patient demonstrates need for an assistive ambulatory device for all mobility ADL performance, functional mobility decline, minimal difficulty with walking due to postoperative status. Patient is [id number] male with osteoarthritis of the right hip status post right total hip arthroplasty on postoperative day 1. Patient presents with clinical signs and symptoms consistent with current/admitting diagnoses that have resulted to mobility limitations, gait instability, and generalized weakness as demonstrated by the following impairment level findings: 1. Minimal decrease in strength to R hip major muscle groups 2. Impaired standing balance 3. Impaired activity tolerance Impairments are contributing to the following functional limitations: 1. Inability to safely ambulate without assistive device and physical assistance 2. Increase completion time for mobility ADL performance 3. Increased fall risk Patient is assessed as a 10015 moderate complexity based on the following: History: 69-year-old male with impairment level findings, functional limitations, and past medical history as indicated above Examination:Demonstrable impairment in strength, balance, and mobility level with underlying impairments and functional limitations as documented above Presentation: Stable Decision Makin moderate complexity Goals: Goals X1 week N/A. PT consult only. Plan of Care/Treatment Plan: N/A. PT consult only. PT Intervention: Session today consisted of initial physical therapy evaluation as well as education and training on safe strategies for mobility ADL performance using the front wheeled walker. DISCHARGE RECOMMENDATIONS: No equipment needs at this time. Home when medically cleared. May benefit from skilled physical therapy services according to orthopedic surgeon's timeline recommendations. Patient will be educated and trained on home exercise program per VIDA exercise protocol. TREATMENT CODE/TIME: 62841 x 33 minutes beginning at 14:52 PM. Thank you very much for this referral. Celi Pittman PT, DPT, CLT [facility] [place], [place]
--- NOTE | 2019-07-29 14:52 | RESPIRATORY ---
Spoke with patient concerning moderate DEEP. Pt told RT that he uses a mouth guard at night instead of a machine.
== END 2019-07-29 16:11 | disposition home or self-care (01) ==
LOC: PDS 13:06 → MS 13:07
PROVIDERS: Admitting Provider Student in an Organized Health Care Education/Training Program; PCP Family Medicine; Visit Provider Student in an Organized Health Care Education/Training Program
PROC: 0SR904A Replacement of Right Hip Joint with Ceramic on Polyethylene Synthetic Substitute, Uncemented, Open Approach (ICD-10-PCS; CPT 27130; principal; 2019-07-29 11:00)
DX: M16.11 Unilateral primary osteoarthritis, right hip (principal); M25.551 Pain in right hip; Z96.641 Presence of right artificial hip joint; Z96.642 Presence of left artificial hip joint; Z96.652 Presence of left artificial knee joint; I10 Essential (primary) hypertension
CPT/HCPCS: 27130; 97162; NC; 73501; G0378; J0690; J1885; J2001; J2250; J2370; J3010

== ENCOUNTER 2019-08-15 11:31 | Outpatient (CLI) | payer MEDICARE, BC, SELFPAY ==
--- NOTE | 2019-08-15 10:30 | DI.RAD_ITS ---
EXAM: XR HIP RT COMPLETE AP PELVIS INDICATION: f/u R VIDA. COMPARISON: CR XR HIP RT COMPLETE AP PELVIS from 07/24/2019 XR HIP RT IN OR from 07/29/2019 TECHNIQUE: 2D digital imaging was performed. FINDINGS: There has been no change in the bilateral hip prostheses. No abnormal bony lucencies are seen. DATA REPOSITORY: RADIATION DOSE DELIVERED:
== END 2019-08-15 11:51 ==
PROVIDERS: PCP Family Medicine; Referring Provider Family Medicine; Visit Provider Student in an Organized Health Care Education/Training Program
DX: Z96.643 Presence of artificial hip joint, bilateral (principal); Z47.1 Aftercare following joint replacement surgery; M16.11 Unilateral primary osteoarthritis, right hip; I10 Essential (primary) hypertension
CPT/HCPCS: 73502

== ENCOUNTER 2019-08-26 10:14 | Outpatient (CLI) | payer MEDICARE, BC, SELFPAY ==
[2019-08-29 18:38] LABS: SARS-CoV-2 RNA Undetected (Undetected); SARS-CoV-2 Specimen Source Nasopharynx
== END 2019-08-26 10:34 ==
PROVIDERS: PCP Family Medicine; Visit Provider Family Medicine
DX: Z03.818 Encounter for observation for suspected exposure to other biological agents ruled out (principal)
CPT/HCPCS: U0003

== ENCOUNTER 2019-12-22 07:36 | Outpatient (CLI) | payer MEDICARE, BC, SELFPAY ==
[2019-12-24 20:35] LABS: Patient Race White; SARS-CoV-2 RNA Undetected (Undetected); SARS-CoV-2 Specimen Source Nasal
== END 2019-12-22 07:56 ==
PROVIDERS: PCP Family Medicine; Visit Provider Internal Medicine
DX: Z11.59 Encounter for screening for other viral diseases (principal)
CPT/HCPCS: U0003

== ENCOUNTER 2020-02-05 05:06 | Outpatient (CLI) | payer MEDICARE, BC, SELFPAY ==
[2020-02-05 08:50] LABS: BUN 23 mg/dL (7-18); Calcium 9.2 mg/dL (8.5-10.1); Chloride 105 mmol/L (98-107); Estimated GFR 59.86 (mL/min/1.73m2); Glucose 105 mg/dL (74-106); Potassium 4.5 mmol/L (3.5-5.1); Sodium 140 mmol/L (136-145)
== END 2020-02-05 05:26 ==
PROVIDERS: PCP Family Medicine; Visit Provider Family Medicine
DX: I10 Essential (primary) hypertension (principal)
CPT/HCPCS: 36415; 80048

== ENCOUNTER 2020-06-29 15:05 | Outpatient (CLI) | payer MEDICARE, SELFPAY ==
--- NOTE | 2020-06-29 14:45 | DI.RAD_ITS ---
Exam(s) XR SHOULDER RT COMPLETE 2+V EXAM: XR SHOULDER RT COMPLETE 2+V CLINICAL HISTORY: rigjt shoulder pain. TECHNIQUE: 2D digital imaging was performed. COMPARISON: No exams were available for comparison FINDINGS: [id number] degenerative changes are seen at the acromioclavicular joint. There are mild degene rative changes seen at the glenohumeral joint. The bones are intact and normally mineralized. Soft tissues are unremarkable. IMPRESSION: Degenerative changes of the right shoulder. DATA REPOSITORY: RADIATION DOSE DELIVERED:
== END 2020-06-29 15:06 | disposition home or self-care (01) ==
LOC: DIORS 15:05
PROVIDERS: PCP Family Medicine; Referring Provider Family Medicine; Visit Provider Student in an Organized Health Care Education/Training Program
DX: S63.641A Sprain of metacarpophalangeal joint of right thumb, initial encounter (principal); X58.XXXA Exposure to other specified factors, initial encounter; M25.511 Pain in right shoulder; M75.21 Bicipital tendinitis, right shoulder; M19.011 Primary osteoarthritis, right shoulder
CPT/HCPCS: 99204; 99213; 73030

== ENCOUNTER 2020-07-20 01:31 | Outpatient (CLI) | payer MEDICARE, SELFPAY ==
--- NOTE | 2020-07-20 15:55 | DI.MRI_ITS ---
Exam(s) MR UPPER JOINT RT WO EXAM: MR UPPER JOINT RT WO CLINICAL HISTORY: R SHOULDER PAIN,RT ROTATOR CUFF TEAR,TENDONITIS,M75.21,S46.011A TECHNIQUE: Multiplanar multisequence MRI of the shoulder was performed. COMPARISON: CR XR SHOULDER RT COMPLETE 2+V from 06/29/2020 FINDINGS: MARROW:There is no evidence of fracture, Hill-Sachs deformity, nor ominous osseous lesions. There are degenerative subarticular cysts in the posterolateral humeral head. No ominous osseous lesions. ROTATOR CUFF MECHANISM: AC JOINT/ACROMIUM: There is some degenerative changes in the AC joint. In addition, there is continui ty of fluid signal from the subacromial space through the AC joint itself and into the tissues around and above the AC joint., consistent with para-articular ganglia on and poss on an and discontinuity of the capsule. There is no evidence of os acromiale. Supraspinatus: Large full-thickness tear with retraction to mid humeral level. Fluid continuity betwe en glenohumeral joint and subacromial space. Mild atrophy. Infraspinatus: There is edema in the muscle belly consistent with intrasubstance tearing as well as t earing/partial tear at the musculotendinous junction. However, tendon fibers do reach the posterior g reater tuberosity. Teres Minor: Intact. No evidence of tear nor muscle atrophy. There appears to be some hypertrophy of this muscle which is probably compensatory. Subscapularis/anterior cuff: Abnormal signal anterior to the lesser tuberosity consistent with partia l tearing but no full-thickness tear. A degenerative subarticular cyst measuring 4 x 3 millimeters is seen just medial to the lesser tuberosity. BICEPS TENDON: Attenuated in the intertubercular groove. Tearing at the biceps anchor. LABRUM: There is tearing at the biceps anchor/anterosuperior labrum. Also some abnormal signal in the superior labrum posterior to the biceps insertion. Posterior labrum appears intact. Most of the ante rior labrum below the anchor appears intact and there is no obvious tear of the inferior labrum. Infe rior glenohumeral ligament is intact. LABROLIGAMENTOUS/CAPSULAR COMPLEX: There is no evidence of avulsion of the anterior-inferior labrum, capsule, inferior glenohumeral liga ment complex nor disruption of the scapular periosteum to suggest the presence of a Bankart lesion. GLENOHUMERAL JOINT: Small joint effusion. Extension into this medial recess. There is some synovial t hickening at this level. There are no degenerative subarticular cysts in the osseous glenoid.. No loo se intra-articular body seen. There are no osteophytes. Minimal cartilage loss. No prominent defects. QUADRILATERAL SPACE: No evidence of mass in the region of the axillary nerve and dorsal circumflex hu meral vessels. Visualized triceps muscle at this level appears unremarkable. IMPRESSION: 1. Full-thickness large tear of the supraspinatus rotator cuff tendon with retraction musculotendinou s junction with large bare area and continuity of fluid from the glenohumeral joint to the subacromia l space and with fluid dissection into the acromioclavicular joint. 2. Edema/partial tearing of the belly of the infraspinatus with partial thickness tearing of the infr aspinatus tendons. 3. Partial-thickness tearing of the anterior cuff-subscapularis. 4. Compensatory hypertrophy of teres minor. Teres minor tendon intact. 5. Biceps anchor tear as well as tearing of the anterosuperior labrum. Mild tearing of the superior l abrum posterior to this level. No tear of the posterior labrum nor of the inferior labrum. Most of th e anterior labrum below these superior aspect appears intact. No evidence of paralabral cyst. Other findings as above DATA REPOSITORY:
== END 2020-07-20 01:51 ==
PROVIDERS: PCP Family Medicine; Visit Provider Student in an Organized Health Care Education/Training Program
DX: M25.511 Pain in right shoulder (principal); M75.21 Bicipital tendinitis, right shoulder; S46.011A Strain of muscle(s) and tendon(s) of the rotator cuff of right shoulder, initial encounter; M19.011 Primary osteoarthritis, right shoulder; M25.411 Effusion, right shoulder; M75.101 Unspecified rotator cuff tear or rupture of right shoulder, not specified as traumatic; S46.211A Strain of muscle, fascia and tendon of other parts of biceps, right arm, initial encounter
CPT/HCPCS: 73221

== ENCOUNTER → 2020-08-17 09:40 | Outpatient (BNVA) | payer MEDICARE, SELFPAY | PROVIDERS: PCP Family Medicine; Referring Provider Family Medicine; Visit Provider Student in an Organized Health Care Education/Training Program | DX: S46.011A Strain of muscle(s) and tendon(s) of the rotator cuff of right shoulder, initial encounter (principal); S46.211A Strain of muscle, fascia and tendon of other parts of biceps, right arm, initial encounter; M65.4 Radial styloid tenosynovitis [de Quervain]; X58.XXXA Exposure to other specified factors, initial encounter | CPT/HCPCS: 99213; 99214 ==

== ENCOUNTER 2020-09-08 03:06 | Outpatient (CLI) | payer MEDICARE, SELFPAY ==
[2020-09-08 11:39] LABS: Source Nasal/Nares
[2020-09-08 14:28] LABS: COVID-19 PCR Negative (Negative)
== END 2020-09-08 03:07 | disposition home or self-care (01) ==
LOC: LBO 03:06
PROVIDERS: PCP Family Medicine; Visit Provider Student in an Organized Health Care Education/Training Program
DX: Z20.822 Contact with and (suspected) exposure to COVID-19 (principal); Z01.818 Encounter for other preprocedural examination
CPT/HCPCS: 87635

== ENCOUNTER 2020-09-10 06:17 | Day surgery (SDC) | payer MEDICARE, SELFPAY ==
[2020-09-10] VITALS (11 sets, daily range): BP systolic 88–137; BP diastolic 43–81; PULSE 50–62; RESP 12–24; TEMP 36.1–36.7; O2SAT 93–100; BMI 30.2
--- NOTE | 2020-09-10 06:01 | W.ANESPRE ---
General Info Date of Service Date Performed: 09/10/20 Height: 5 ft 9 in Weight: 92.986 kg Body Mass Index (BMI): 30.2 Surgical Procedure: Operation Date: 09/10/20 07:40 Proposed Procedures Side Surgeon p SHOULDER arthroscoy with extensive debridement,subacromial decompression, rotator cuff repair, possible superior capsular reconstructions Right Gustavo Mackenzie MD Meds Allergies and Home Medications Allergies Allergy/AdvReac Type Severity Reaction Status Date / Time atorvastatin AdvReac Intermediate muscle Verified 09/10/20 06:27 cramps ezetimibe [From Zetia] AdvReac Intermediate cramping, Verified 09/10/20 06:27 myalgias lovastatin AdvReac Intermediate muscle Verified 09/10/20 06:27 cramps pravastatin AdvReac Intermediate muscle Verified 09/10/20 06:27 aches Home Medication Medication Instructions Recorded [id number] 2 ea PO DAILY 09/06/12 multivitamin [Daily Vitamin] 1 ea PO DAILY 09/06/12 lisinopril 10 mg tablet 10 mg PO DAILY 90 Days #90 tab-cap 04/16/20 Tumeric 500mg 1 cap PO DAILY 08/23/20 aspirin 81 mg tablet,delayed 81 mg PO DAILY 08/23/20 release calcium carbonate 400 mg calcium 2,000 mg PO PRN PRN tab 08/23/20 (1,000 mg) chewable tablet omeprazole 20 mg capsule,delayed 20 mg PO DAILY PRN cap 08/23/20 release Current Visit Medications: Current Medications Generic Name Dose Route Start Last Admin Trade Name Marcia PRN Reason Stop Dose Admin Ephedrine Sulfate 0 mg 09/10/20 06:00 Ephedrine 50 Mg/Ml Vial IVP DIRECTED PRN Ringer's Solution 1,000 mls @ 100 mls/hr 09/10/20 06:00 IV 10/09/20 23:59 INFUSION FREDO Cefazolin Sodium/Dextrose 2 gm in 50 mls @ 100 mls/hr 09/10/20 06:00 Ancef Duplex IVPB 09/10/20 16:00 PREOP FREDO IV Miscellaneous Supplies 1 each 09/10/20 06:00 Iv Access IV 10/09/20 23:59 DIRECTED FREDO Naloxone HCl 0 mg 09/10/20 06:00 Naloxone 0.4 Mg/Ml Vial IVP PRN PRN Sodium Chloride 0 ml 09/10/20 06:00 Normal Saline Flush 10 Ml Syr IV 10/09/20 23:59 PRN PRN Sodium Chloride 0 ml 09/10/20 06:00 Normal Saline 10 Ml Vial IJ 10/09/20 23:59 DIRECTED PRN Sterile Water 0 ml 09/10/20 06:00 Water,Injection,Sterile 10 Ml Vial IJ 10/09/20 23:59 DIRECTED PRN PFSH Active Problems Active Problems: Problem Status Onset Code De Quervain's tenosynovitis, right M65.4 Rupture of right proximal biceps tendon S46.211A Rotator cuff tear, right M75.101 Carpal tunnel syndrome 01/13/14 G56.00 Hand paresthesia 09/08/13 R20.2 History of total left knee replacement (TKR) 08/20/18 Z96.652 Moderate obstructive sleep apnea 12/12/18 G47.33 Osteoarthritis of right hip M16.11 History of total left hip replacement 10/17/18 Z96.642 Strain of right biceps S46.211A Hx of tonsillectomy Z90.89 Hx of eye surgery Z98.890 H/O arthroscopy of knee Z98.890 S/P trigger finger release 06/09/11 Z98.890 Tendonitis of shoulder, right M75.81 Sciatica 09/10/12 M54.30 Peripheral vascular disease 07/06/10 I73.9 Hyperlipidemia 07/27/11 E78.5 History of skin disorder 12/24/15 Z87.2 Essential hypertension I10 Elev transaminase/LDH 02/26/89 R74.0 Abnormal fasting glucose 07/27/09 R73.01 Lumbar back pain with radiculopathy affecting left lower extremity M54.17 Medical History Medical History Abnormal fasting glucose (07/27/09) A1c 5.8 07/2009; high FBS 127, HbA1c 6.1 (09/2013) Elev transaminase/LDH (02/26/89) W/U US 2001 2004; GGT elevated with min elevation AST; neg Hep C, HepB, Iron; likely fatty liver Essential hypertension History of skin disorder (12/24/15) h/o dysplastic nevus, h/o severe atypia L ear: f/u Dr Landaverde q 2-3 yr, last 11/2014 Hyperlipidemia (07/27/11) 2006 RISK 15%; goal LDL <130; impaired FBS; ?carotid plaque, RX start 2006 lovastatin Lumbar back pain with radiculopathy affecting left lower extremity Osteoarthritis of right hip s/p VIDA 07/29/19 Peripheral vascular disease (07/06/10) Moderate plaque carotid on [employer] screening 06/2010 Primary osteoarthritis of left knee Sciatica (09/10/12) H/O 1985; FLAIRED 07/2012 L epidural, traction, acupuncture; 08/2013 L sciatica, Neuro consult.; Dr Hart Strain of right biceps Tendonitis of shoulder, right Surgical History Surgical History CARPAL TUNNEL (08/04/16) OPEN--LEFT WRIST--DR. HERNANDES first, then right H/O arthroscopy of knee right, and twice on left History of knee replacement Left knee History of total left hip replacement (10/17/18) Dr. Fowler Hx of eye surgery 80's per pt pigment was outside of iris. Hx of tonsillectomy as a child Lumbar Epidural Steroid Injection (08/28/16) [facility] Dr Polly Bernstein Lumbar Epidural Steroid Injection (12/05/16) [facility] Dr Polly Bernstein Lumbar Epidural Steroid Injection (03/06/17) [facility] Dr Polly Bernstein Open Carpal Tunnel release (10/07/14) R Dr Hernandes S/P trigger finger release (06/09/11) right - at least two trigger releases Trigger Finger release (08/04/16) LEFT RING--DR. HERNANDES Tobacco Smoking/Tobacco Use Status: Never Alcohol Alcohol Intake: current Alcohol intake frequency: 0-2 drinks per day Substance Use Substance use: Never Substance use type: does not use Vital Signs and Lab Results Vital Signs Most Recent Vital Signs in EMR: Temp Pulse Resp BP Pulse Ox 36.3 C L 62 20 137/81 96 09/10/20 06:31 09/10/20 06:31 09/10/20 06:31 09/10/20 06:31 09/10/20 06:31 Lab Results Blood Type / Crossmatch: No Data to Display Complete Blood Count: No Data to Display Complete Metabolic Panel: No Data to Display Liver Function Panel: No Data to Display Coagulation Panel: No Data to Display Cardiac Panel: No Data to Display Arterial Blood Gas: No Data to Display Venous Blood Gas: No Data to Display Pancreas Panel: No Data to Display Thyroid Panel: No Data to Display Infectious Disease: Coronavirus (COVID-19)(PCR) Negative (Negative) 09/08/20 10:57 09/08/20 Coronavirus 2019 Source Nasal/Nares 09/08/20 10:57 09/08/20 Blood Cultures: No Data to Display Toxicology Panel: No Data to Display Imaging and Studies Imaging and Studies Stress Test Summary: 2012: negative for ischemia. Anesthesia Assessment and Plan Anesthesia History Personal History: No History of Anesthesia Complications Family History: No Family History of Anesthesia Complications Exercise Tolerance Exercise Tolerance: Metabolic Equivalents>4 Cardiac & Pulmonary Exam Cardiac Exam: Normal S1/S2 Heart Sounds Pulmonary Exam: Clear Bilateral Breath Sounds Airway Exam Known Difficult Airway: No Mallampati Class: 3 Mouth Opening: Normal (> 3cm) Thyromental Distance: Greater than 3 cm Neck Range of Motion: Full ROM Neck Circumference: Normal Teeth Condition: Normal Dentition ASA Classification ASA Score: ASA 2 Emergency Case?: No NPO Status NPO Status: NPO Clears >2 hours, Solids >8 hours Anesthesia Plan Resuscitation Status: Full Code Anesthesia Technique: General Anesthesia Airway Planned: Endotracheal Tube Pain Management: Surgeon and patient request nerve block Monitors Used: Standard Monitors Preoperative Comments:: 70 yo male for right shoulder debridement/repair. Previous anesthesia for VIDA with spinal - did require ephedrine boluses and phenyl gtt during. Previous LMA 5.
[2020-09-10] MEDS: Lactated Ringers 1,000 ML 100 ML IV (06:54)
[2020-09-10] MEDS: ceFAZolin 2 GM/50 ML BAG IVPB (07:34)
--- NOTE | 2020-09-10 07:54 | W.ANESNERVE ---
Nerve Block Single Injection Procedure Date and Time Date Performed: 09/10/20 Procedure Start: 07:19 Location Where Procedure Performed Procedure Location: Operating Room Procedure Stop: 07:30 Reason Performed: Postoperative Analgesia Requesting Provider: Gustavo Mackenzie Timeout Performed Timeout Performed: Yes Monitoring Used ECG, Blood Pressure and SpO2 Sterility Sterility: Hand Hygiene, Surgical Cap, Surgical Mask, Sterile Gloves and Chlorhexidine Sedation Given During Procedure Sedation Given (Indicate Dose Given): Versed IV Dose:: 2 mg Patient Mental Status Patient Mental Status: Awake Nerve Block 1st Nerve Block: Laterality: Right Block Type: Interscalene Needle / Catheter Used: 100mm SonoPlex II Local Anesthetic Bolus (Indicate Dose Given): Lidocaine used for local infiltration of skin, Injected in 3-5ml increments after negative blood aspiration, Bupivacaine 0.5% Dose:: 13 mL and Exparel Dose:: 10 mL Additives (Indicate Dose Given): None Ultrasound: Sterile probe cover and gel used Ultrasound Image Saved?: Yes Nerve Stimulator: Not Used Paresthesia: None Procedure Tolerated: No Complications Procedure Outcome: Successful Performed By: Jarvis Shah
--- NOTE | 2020-09-10 09:00 | ROE_ITS ---
Date of service: 09/10/20 Time of Service: 08:00 Operative Note Operative Note DATE OF PROCEDURE: 09/10/20 PRE-OP DIAGNOSIS: Right: 1. Rotator cuff tear 2. Proximal biceps rupture 3. Bursitis POST-OP DIAGNOSIS: same PROCEDURE: Right: 1. Superior capsular reconstruction, CPT #14787. This involved allograft reconstruction of deficient superior capsule about the site of irreparable sup raspinatus tear to prevent superior escape and rotator cuff arthropathy. 2. Rotator cuff repair, CPT# 18635. This involved repair of the subscapularis and infraspinatus using anchors and sutures to reattach the rotator cuff back to the footprint of the lesser tuberosity and posterior aspect of the superior capsular reconstruction and greater tuberosity. 3. Extensive debridement, CPT# 85735. This involved using arthroscopic hand instruments, power instruments, and radiofrequency instruments to resect and debride a prominent stump of the long head of the biceps tendon and debride areas of labral tearing, synovitis, and chondromalacia lesser and greater tuberosities working within the glenohumeral joint anteriorly, superiorly and posteriorly. 4. Subacromial decompression, CPT# 52898. This involved using arthroscopic power instruments and a radiofrequency wand to complete a bursectomy. The surgical services assistant was medically required in order to help assist in techniques above, which require positioning the arm, holding the arthroscope, and manipulating multiple instruments and sutures at the same time. This cannot be done without the help of an experienced surgical services assistant. SURGEON: Gustavo Mackenzie INSPECTOR [employer] RECONDITIONING: Serge Murrieta ANESTHESIA TYPE: General LMA/ETT and Primary Nerve Block Refer to Anesthesia Record ESTIMATED BLOOD LOSS: 15 PATHOLOGY: none sent TOURNIQUET TIME: 0 COMPLICATIONS: None Patient was transported to: PACU Patient's condition: stable Implants: Arthrex: 4.75mm SwiveLocks x4, 4.75mm knotless SwiveLock x1, 3.9mm knotles Corkscrew x3; ArthroFLEX dermal allograft Indications: The patient was diagnosed with the above conditions and appropriately indicated for surgical intervention. Please see complete medical record for details. Findings: Exam under anesthesia: Reasonably full range of motion with external rotation at the side about 55 degrees and forward elevation about 135 degrees. Glenohumeral joint: Profound synovitis and anterior and posterior labral tearing and fraying. Global cartilage softening and fraying, grades 1?2. Only minimal small central superior humeral head area grade 3 cartilage loss. Intra- articular long head biceps tendon rupture not visualized at the top of the bi cipital groove. Prominent biceps tendon stump at superior labrum firm and probably calcified. Full-thickness upper margin subscapularis tear with moderate retraction. Subacromial space: Profound bursitis. Full-thickness retracted past the level of the glenoid delaminated supraspinatus rotator cuff tear with calcifications centrally and posteriorly at a separate flap. Separate infraspinatus full- thickness retracted tear with moderate excursion from the glenoid almost to the posterior aspect of the greater tuberosity. Hemorrhagic intact teres minor. No significant subacromial bone spur. Procedure Description: In the operating room, general anesthesia was induced. Bilateral shoulders were examined. The patient was positioned in the beachchair position. All bony prominences were well-padded. Preoperative antibiotics were administered. The shoulder was prepped and draped in the usual sterile fashion. The correct patient, procedure, and side of the procedure were all verified prior to incision. Starting through the posterior portal a standard complete diagnostic arthroscopy was performed of the glenohumeral joint including inspection of the long head of the biceps, anterior and superior labrum, subscapularis tendon, supraspinatus and infraspinatus tendons, and axillary recess. The glenoid and humeral head cartilage as well as the posterior labrum were inspected from an anterior viewing portal. Significant findings and extensive debridement interventions noted above with an anterior portal established and 8 x 3 mm passport cannula inserted. As the glenohumeral joint and subacromial space quickly became 1 large space once debrided of profound, thick, and calcified synovitis, bursitis, and rotator cuff tearing the lateral 50 yard line portal was established under spinal needle localization and a 12 x 3 mm passport cannula inserted. Care was taken to debride the greater tuberosity of significant remnant scar and rotator cuff tissue working from anterior to posterior and from the articular margin to far lateral. Bleeding bone was exposed over the medial row and superior aspect to optimize later bone capsule and tendon repair. A combination of power instruments and a radiofrequency ablator were used to debride bursitis anteriorly, posteriorly, and laterally. The coracoacromial ligament was preserved. The bursectomy was completed viewing laterally and working from posteriorly and the rotator cuff was thoroughly inspected with findings noted above. The subscapularis was noted to be torn at its superior aspect with moderate retraction. Cuff grasper was used to mobilize and elevators to release the tendon carefully anteriorly and posteriorly to its margin. The lesser tuberosity site was debrided of soft tissue to prepared bone surface to optimize healing at the planned fixation site. The supraspinatus was inspected and had minimal excursion. A superior anterior lateral Portal was established and another 8 x 3 cannula inserted here. A self retrieving scorpion suture passer was used to pass a fiber link in cinch mode through the upper lateral margin of the subscapularis. This traction stitch was used to further release the subscapularis and confirm adequate mobilization and reduction to the lesser tuberosity. The supraspinatus continue to exhibit minimal excursion anteriorly and centrally despite mobile and up the anterior tissue. The rotator interval was devoid of biceps tendon and the SG HL and CHL complex was significantly frayed and medially displaced although somewhat reduced with the subscapularis confirming appropriate reduction. The self retrieving suture passer was then used to pass a fiber tape more centrally and medially in the subscapularis. The sutures were brought out the anterior cannula, the repair site localized and prepared for suture anchor with the undersized tap. All 3 sutures were brought through the eyelet of a 4.75 mm swivel lock, appropriately tensioned, and the suture anchor secured down to bone. Sutures were cut flush with the anchor. The arm was brought through range of motion including full external rotation to 55 degrees without any loss of fixation and excellent more physiologic appearing subscapularis tendon. Attention was then brought back to the significant superior and posterior rotator cuff defect. A posterior superior lateral portal was established using spinal needle localization and an 8 x 4 mm passport cannula established here. The tuberosity was confirmed to be adequately prepared for repair. Various patel erator's elevators were used to mobilize the supraspinatus and infraspinatus. A delaminated calcified aspect of the posterior supraspinatus was inspected and determined to have poor quality for healing. The shaver was unable to remove it so graspers were used to maintain it and arthroscopic scissors to remove it from the more physiologic aspect of the supraspinatus. The tear between the suprasp inatus and infraspinatus ran along the scapular spine. Mobility of the supraspinatus was only marginally improved confirming need for allograft superior capsule reconstruction. The infraspinatus however was able to be mobilized reasonably around to the posterior aspect of the greater tuberosity and separate from a visualized intact far posterior teres minor. The decision was made to proceed with superior capsular reconstruction and subsequent infraspinatus repair over the top of the posterior aspect of the graft to the greater tuberosity as best possible followed by any additional side to side infraspinatus and supraspinatus repairs to the graft. The anterior superior and posterior aspects of the glenoid rim were prepared removing soft tissue of frayed labrum and rotator cuff. 18-gauge spinal needles were inserted percutaneously to localize the anterior central and posterior glenoid fixation points. Trajectory and spacings were optimized. Stab portals were then used followed by switching stick and half pipe spear to appropriately punch and then place each corkscrew anchor from anterior to posterior. Care was taken to ensure no cartilage or joint penetration. The central anchor was placed slightly more medial to avoid anchor convergence. The underside of punch was then used to place the greater tuberosity medial row anchors taking care to appropriately space them across the exposed footprint. The anterior anchor was punched and then swivel lock anchor secured with fiber tape. The posterior anchor was punched and then a knotless swivel lock anchor was secured as the posterior rotator cuff demonstrated reduction to this site. The arm was positioned in neutral rotation and about 30 degrees of abduction. The SCR measuring guide was used to measure dimensions of the graft. There was about 15 mm between anchors medially and 30 mm between anchors laterally as well as a 30 mm space anteriorly and posteriorly. The arthro-Flex graft was opened and soaked in normal saline and vancomycin mixture on the back table. The graft was appropriately measured and trimmed to fit the above dimensions allowing for almost 10 mm margin medially, anteriorly, and posteriorly with almost 15 mm laterally. The punch was used to establish the lateral holes in the graft was brought over to the arm protected from skin with a blue towel. The fiber tapes from the anterior medial row anchor were brought out the lateral 50 yard line portal and through the graft using a BirdBeak. This was repeated with the posterior medial row anchor sutures including the knotless repair feliz michelles. The sutures were maintained in correct orientation while the glenoid repair and link sutures from the anterior corkscrew were brought out laterally. The scorpion was used to pass the repair stitch in a mattress fashion at the marked site on the medial anterior aspect of the graft. The repair stitch was then fed through the looped end of the link and brought back through the anchor and slack brought out of the mechanism. This process was then repeated for the middle and posterior glenoid corkscrew anchors taking care to maintain sutures appropriate orientation. The back grasper was then used to deliver the medial aspect of the graft into the joint while slack was removed from the 3 glenoid anchors. This process was continued carefully delivering the graft into the joint, preventing twisting or crossing of the sutures or graft, and successful in bringing the entirety of the graft into place in the correct orientation. The central glenoid suture fixation was provisionally tightened followed by anteriorly and posteriorly. There is excellent reduction of the graft over the glenoid with secure fixation and filling of the superior void. Fiber tape retriever was then used to bring the graft down to the medial row of the radial tuberosity anchors. A fiber tape from the anterior posterior anchor was then laterally and the other sutures brought out anterior and posteriorly. The speed bridge repair was then completed laterally with a tape from each anchor secured anteriorly with another swivel lock with an additional fiber link suture to prevent a dogear and add fixation to the anterior central lateral aspect of the allograft. Each fiber tape was brought out and secured to the posterior lateral row with another swivel lock. The graft and reconstruction was inspected with the arm now in neutral. Demonstrated excellent fixation strength medially and laterally throughout range of motion. Medial corkscrews were confirmed to be finally tightened and sutures cut flush. It was reasonably opposed to the posterior rotator cuff already and cuff grasper could bring the infraspinatus to the planned knotless repair posterior medial row anchor. The repair stitch was brought out laterally passed through the infraspinatus with the scorpion and then fed with the length back through the anchor while maintaining optimal reduction with cuff grasper and securing a large part of the posterior rotator cuff to the greater tuberosity and over the backside of the SCR graft. More medially there was a small defect between the graft and the supraspinatus and infraspinatus junction. A bird's beak was used to penetrate the rotator cuff followed by a scorpion to pass the #2 FiberWire through the SCR graft and this avoid closed and secured with an [facility] arthroscopic knot. Graft was again inspected. Had excellent well apposed tissue medially and laterally the greater tuberosity. There was a small gap between the lateralmost infraspinatus and the lateralmost SCR graft. In a similar fashion using Tarah and siomara a #2 FiberWire was passed and then the rotator cuff and graft repair together with another [facility] knot. The entirety of the repair was inspected found to demonstrate excellent fixation medial laterally and and tolerating range of motion. The supraspinatus was nicely draped over the medial and posterior aspect of the SCR and the infrasp inatus had excellent opposition to the posterior margin of the graft with secure fixation to the greater tuberosity. The shoulder was drained of arthroscopic fluid. All portal sites were copiously irrigated. These incisions were closed using 3-0 Monocryl in a buried fashion and then covered with Mastisol, Steri-Strips, Xeroform, dry gauze, and ABDs. The dressings were covered and secured with Medipore tape. The operative extremity was placed into a sling for immobilization. The patient awoke from anesthesia without complication and was transferred to the recovery room in a stable condition.
[2020-09-10] MEDS: EPINEPHrine 30 MG/30 ML VIAL (12:20)
--- NOTE | 2020-09-10 12:50 | PDOC.DSDIS_ITS ---
Discharge Plan Disposition Patient Disposition: HOME Condition: Stable Discharge Details Reason For Visit: Right shoulder surgery Attending Provider: Gustavo Mackenzie Primary Care Provider: Omid Moeller Home Meds and New Rx's Prescriptions: New naproxen 250 mg tablet 250 - 500 mg PO BID PRN (Reason: Moderate pain or swelling) Qty: 30 RF: 0 oxycodone 5 mg tablet 5 - 10 mg PO Q4H PRN (Reason: moderate to severe pain) Qty: 16 RF: 0 Continued aspirin [Adult Low Dose Aspirin] 81 mg tablet,delayed release (DR/EC) 81 mg PO DAILY RF: 0 calcium carbonate [Tums Ultra] 400 mg calcium (1,000 mg) tablet,chewable 2,000 mg PO PRN PRNRF: 0 omeprazole 20 mg capsule,delayed release(DR/EC) 20 mg PO DAILY PRN (Reason: reflux) RF: 0 multivitamin [Daily Vitamin] 1 EACH tablet 1 ea PO DAILY RF: 0 dxrtowpl-pthn-hjs2-C-keny-bosw 1 EACH tablet 2 ea PO DAILY RF: 0 lisinopril 10 mg tablet 10 mg PO DAILY 90 Days Qty: 90 RF: 3 Tumeric 500mg capsule 1 cap PO DAILY RF: 0 Discharge Instructions Additional Instructions: Surgery: Shoulder arthroscopy with superior capsular reconstruction, subscapularis and infraspinatus rotator cuff repairs, extensive debridement, and subacromial decompression. Activity: You should keep your arm at your side in a neutral position at all times except for physical therapy. Do not try to lift or raise your arm using your own muscles for 6 weeks. You should use the sling whenever you are out of the house. You may have to adjust the abduction pillow or remove it for comfort. At home it is best to remove the sling and rest the arm on a pillow at your side or support the operative side with your other hand. You may allow the arm to dangle at your side. A physical therapy prescription will be sent electronically to begin in [2-3 weeks]. Prescriptions: Resume aspirin 81 mg daily starting tomorrow Naproxen 250 mg take 1-2 every 12 hours with a meal as needed for moderate pain or previously prescribed celecoxib per patient preference Oxycodone 5 mg take 1-2 every 4-6 hours as needed for severe pain You may use smnq-qso-qyxxlas Tylenol (acetaminophen) as needed for mild pain. These pain medications may be taken all at once or in different combinations as needed. Also, recommend Colace (docusate) as a stool softener as surgery and pain medicine cause constipation. Dressings: Remove shoulder bandage after 3 days. Leave the sticky Steri-Strips in place until they fall off or remove them after you shower. Cover the incisions with Band-Aids or leave them open to air. You may shower after 5 days. Follow-up: 10-[address] Mackenzie You may take off the leg compression stockings this evening at home. You may also leave them on a few days longer if you have a history of leg swelling or edema. Let us know right away if you develop any redness, drainage, fevers, chest pain, or trouble breathing. Do not drink alcohol or drive for at least 24 hours after anesthesia. Please call the office during business hours with any questions or concerns. Referrals: Gustavo Mackenzie MD [ [facility] STAFF PHYSICIAN] - Discharge Orders Discharge Orders: Discharge Order (Routine); Ordered 09/10/20 Ordered By: Gustavo Mackenzie DS: Diagnosis Discharge Diagnosis (1) Rupture of right proximal biceps tendon: Status: Acute (2) Rotator cuff tear, right: Status: Acute (3) Bursitis of right shoulder: Status: Acute
--- NOTE | 2020-09-10 15:19 | W.ANESPOSTOP ---
Postoperative Evaluation Date, Time and Location Date Performed: 09/10/20 Time Performed: 15:20 Patient Location: Day Surgery Unit Vital Signs Most Recent Imported Vital Signs: Most Recent Vital Signs Temp Pulse Resp BP Pulse Ox 36.1 C L 54 L 18 106/61 96 09/10/20 14:54 09/10/20 14:54 09/10/20 14:54 09/10/20 14:54 09/10/20 14:54 Pain Score Most Recent Pain Score: Most Recent Pain Score Pain Level 0 09/10/20 14:54 Assessment Mental Status: Awake (Alert & Oriented to Patient Baseline) Airway and Respiratory Function: Patent airway with normal (patient baseline) respiratory exam Cardiovascular Function: Hemodynamically Stable Hydration Status: Adequately Hydrated Nausea & Vomiting: No Nausea or Vomiting Pain: Pt. Denies Any Pain Peripheral Nerve Block: Other (Nerve block appropriately set for patient.)
== END 2020-09-10 15:50 | disposition home or self-care (01) ==
PROVIDERS: PCP Family Medicine; Visit Provider Student in an Organized Health Care Education/Training Program
PROC: (CPT 29827; principal; 2020-09-10 07:30)
DX: M75.51 Bursitis of right shoulder; M75.101 Unspecified rotator cuff tear or rupture of right shoulder, not specified as traumatic; M75.21 Bicipital tendinitis, right shoulder
CPT/HCPCS: 29806; 29827; 29823; 29826; 76942; J0690; J1100; J2001; J2250; J2370; J2405; J2704

== ENCOUNTER → 2020-09-22 10:43 | Outpatient (BNVA) | payer MEDICARE, SELFPAY | PROVIDERS: PCP Family Medicine; Referring Provider Family Medicine; Visit Provider Student in an Organized Health Care Education/Training Program | DX: Z47.89 Encounter for other orthopedic aftercare (principal); M25.531 Pain in right wrist; M25.541 Pain in joints of right hand ==

== ENCOUNTER 2020-11-10 14:30 | Outpatient (CLI) | payer MEDICARE, SELFPAY ==
--- NOTE | 2020-11-10 13:45 | DI.RAD_ITS ---
Exam(s) XR WRIST RT COMPLETE EXAM: XR WRIST RT COMPLETE CLINICAL HISTORY: right wrist pain. TECHNIQUE: 2D digital imaging was performed. COMPARISON: No exams were available for comparison FINDINGS: BONES: No acute fracture is present. No bony destructive lesion is seen. JOINTS: The carpal bones are normally aligned. Mild hypertrophic spurring is seen at the articulation of the scaphoid with the quadrangular bones. SOFT TISSUE: Normal. IMPRESSION: Mild degenerative changes of the wrist. DATA REPOSITORY: RADIATION DOSE DELIVERED:
== END 2020-11-10 14:31 | disposition home or self-care (01) ==
LOC: DIORS 14:30
PROVIDERS: PCP Family Medicine; Referring Provider Family Medicine; Visit Provider Student in an Organized Health Care Education/Training Program
DX: M25.531 Pain in right wrist (principal); Z47.89 Encounter for other orthopedic aftercare; M75.51 Bursitis of right shoulder; M65.4 Radial styloid tenosynovitis [de Quervain]
CPT/HCPCS: 20550; 99213; 73110; J1030

== ENCOUNTER → 2020-12-29 12:54 | Outpatient (BNVA) | payer MEDICARE, SELFPAY | PROVIDERS: PCP Family Medicine; Referring Provider Family Medicine; Visit Provider Student in an Organized Health Care Education/Training Program | DX: Z47.89 Encounter for other orthopedic aftercare (principal); M25.531 Pain in right wrist; M75.51 Bursitis of right shoulder; M65.4 Radial styloid tenosynovitis [de Quervain] | CPT/HCPCS: 99213 ==

== ENCOUNTER 2021-01-28 03:47 | Outpatient (CLI) | payer MEDICARE, SELFPAY ==
[2021-01-28 09:12] LABS: Anion Gap 10.9 mmol/L (3-11); BUN 24 mg/dL (7-18); CO2 27.1 mmol/L (21.0-32.0); CREATININE 1.1 mg/dL (0.70-1.30); Calcium 9.3 mg/dL (8.5-10.1); Chloride 101 mmol/L (98-107); Glucose 120 mg/dL (74-106); Potassium 4.7 mmol/L (3.5-5.1); Sodium 139 mmol/L (136-145)
== END 2021-01-28 03:48 | disposition home or self-care (01) ==
LOC: LBO 03:47
PROVIDERS: PCP Family Medicine; Visit Provider Family Medicine
DX: I10 Essential (primary) hypertension (principal)
CPT/HCPCS: 36415; 80048

== ENCOUNTER → 2021-05-31 09:07 | Outpatient (BNVA) | payer MEDICARE, SELFPAY | PROVIDERS: PCP Nurse Practitioner Adult Health; Referring Provider Nurse Practitioner Adult Health; Visit Provider Student in an Organized Health Care Education/Training Program | DX: S46.211D Strain of muscle, fascia and tendon of other parts of biceps, right arm, subsequent encounter (principal); S46.011D Strain of muscle(s) and tendon(s) of the rotator cuff of right shoulder, subsequent encounter; X58.XXXD Exposure to other specified factors, subsequent encounter; M65.4 Radial styloid tenosynovitis [de Quervain] | CPT/HCPCS: 99214 ==

== ENCOUNTER 2021-07-22 01:47 | Outpatient (CLI) | payer MEDICARE, SELFPAY ==
[2021-07-22 13:19] LABS: ALT 74 U/L (16-63); AST 53 U/L (15-37); Albumin 4.3 g/dL (3.4-5.0); Alkaline Phosphatase 108 U/L (46-116); Anion Gap 11.1 mmol/L (3-11); BUN 28 mg/dL (7-18); Bilirubin, Total 0.4 mg/dL (0.2-1.0); CO2 22.9 mmol/L (21.0-32.0); CREATININE 1.2 mg/dL (0.70-1.30); Calcium 8.7 mg/dL (8.5-10.1); Calculated LDL 156 mg/dL (<100); Chloride 105 mmol/L (98-107); Cholesterol 223 mg/dL (<200); Estimated GFR 59.51 (mL/min/1.73m2); Glucose 101 mg/dL (74-106); HDL Cholesterol 47 mg/dL (40-60); Potassium 4.6 mmol/L (3.5-5.1); Sodium 139 mmol/L (136-145); Total Protein 6.9 g/dL (6.4-8.2); Triglyceride 100 mg/dL (<150)
[2021-07-22 22:45] LABS: PSA, Screening 0.3 ng/mL (<=6.5)
== END 2021-07-22 01:48 | disposition home or self-care (01) ==
LOC: LBO 01:48
PROVIDERS: PCP Nurse Practitioner Adult Health; Visit Provider Nurse Practitioner Adult Health
DX: E78.5 Hyperlipidemia, unspecified (principal); I10 Essential (primary) hypertension; R73.01 Impaired fasting glucose; Z12.5 Encounter for screening for malignant neoplasm of prostate
CPT/HCPCS: 36415; 80053; 80061; 84153; 83036

== ENCOUNTER → 2021-09-19 14:40 | Outpatient (BNVA) | payer MEDICARE, SELFPAY | PROVIDERS: PCP Nurse Practitioner Adult Health; Referring Provider Nurse Practitioner Adult Health; Visit Provider Student in an Organized Health Care Education/Training Program | DX: M17.11 Unilateral primary osteoarthritis, right knee (principal); M54.31 Sciatica, right side | CPT/HCPCS: 20610; 99214; J1040 ==

== ENCOUNTER → 2021-09-21 09:41 | Outpatient (BNVA) | payer MEDICARE, SELFPAY | PROVIDERS: PCP Nurse Practitioner Adult Health; Referring Provider Nurse Practitioner Adult Health; Visit Provider Student in an Organized Health Care Education/Training Program | DX: S46.011D Strain of muscle(s) and tendon(s) of the rotator cuff of right shoulder, subsequent encounter (principal); X58.XXXD Exposure to other specified factors, subsequent encounter; M75.51 Bursitis of right shoulder; S46.211D Strain of muscle, fascia and tendon of other parts of biceps, right arm, subsequent encounter; M65.4 Radial styloid tenosynovitis [de Quervain] | CPT/HCPCS: 99213 ==

== ENCOUNTER 2021-10-21 01:18 | Outpatient (CLI) | payer MEDICARE, SELFPAY ==
[2021-10-21 16:54] LABS: ALT 109 U/L (16-63); AST 71 U/L (15-37); Albumin 3.9 g/dL (3.4-5.0); Alkaline Phosphatase 119 U/L (46-116); Bilirubin, Direct 0.1 mg/dL (0.0-0.2); Bilirubin, Total 0.4 mg/dL (0.2-1.0); Creatine Kinase 268 U/L (39-308); Total Protein 7.1 g/dL (6.4-8.2)
== END 2021-10-21 01:19 | disposition home or self-care (01) ==
LOC: LBO 01:19
PROVIDERS: PCP Nurse Practitioner Adult Health; Visit Provider Nurse Practitioner Adult Health
DX: M79.18 Myalgia, other site (principal); R74.01 Elevation of levels of liver transaminase levels
CPT/HCPCS: 36415; 80076; 82550

== ENCOUNTER → 2022-02-01 16:21 | Outpatient (CLI) | payer MEDICARE, SELFPAY ==
--- NOTE | 2022-02-01 15:40 | DI.RAD_ITS ---
Exam(s) XR CHEST 2V PA LATERAL EXAM: XR CHEST 2V PA LATERAL CLINICAL HISTORY: ? PNA or CHF, cough, R05.9 TECHNIQUE: 2D digital imaging was performed. COMPARISON: No exams were available for comparison FINDINGS: The heart is not enlarged. The lungs are clear and well expanded. No pleural effusion seen. Mediastin al contours appear intact. IMPRESSION: Normal chest. RADIATION DOSE DELIVERED: Total DLP
== END ==
PROVIDERS: PCP Nurse Practitioner Adult Health; Visit Provider Nurse Practitioner Family
DX: R05.8 Other specified cough (principal)
CPT/HCPCS: 71046

== ENCOUNTER 2022-02-08 15:41 | Outpatient (CLI) | payer MEDICARE, SELFPAY ==
[2022-02-08 16:31] LABS: D-Dimer 783 ng/mlFEU (<500)
== END 2022-02-08 15:42 | disposition home or self-care (01) ==
LOC: LBO 15:42
PROVIDERS: PCP Nurse Practitioner Adult Health; Visit Provider Nurse Practitioner Family
DX: R05.9 Cough, unspecified (principal)
CPT/HCPCS: 36415; 85379

== ENCOUNTER → 2022-02-09 13:05 | Outpatient (CLI) | payer MEDICARE, SELFPAY ==
--- NOTE | 2022-02-09 08:45 | DI.CT_ITS ---
Exam(s) CT CHEST PE CTA EXAM: CT CHEST PE CTA CLINICAL HISTORY: ? PE; persistent dry cough s/p cold,elevated d dimer,r05.9. TECHNIQUE: Imaging Protocol: Axial CT angiography was performed with multi-slice acquisition and mu lti-planar and/or 3D reconstructions. CONTRAST MATERIAL: Intravenous: Omnipaque 350 contrast volume:100 mL COMPARISON: CR XR CHEST 2V PA LATERAL from 02/01/2022 FINDINGS: The examination is limited due to patient motion artifact. Tracheobronchial tree: Patent where visualized. Pulmonary parenchyma: There is a ground-glass infiltrate seen in the right upper lobe. Dependent ate lectatic changes are seen in the lung bases. No architectural distortion. Pulmonary Arteries: No evidence of filling defect to suggest pulmonary emboli. Mediastinum and Melisa: No dominant adenopathy or fluid collection. The esophagus is unremarkable. Th ere is a small hiatal hernia. Visualized thyroid gland: Unremarkable. Pleura: No effusion or pneumothorax. Heart: Cardiomegaly. Coronary artery calcifications are present. No evidence of right heart strain. No pericardial effusion. Aorta: Thoracic aorta non-dilated. Atherosclerosis. The thoracic aorta is not adequately opacified f or evaluation for dissection. Upper abdomen: Unremarkable. Soft tissues: Unremarkable. Bones: Within normal limits for the patient's age. IMPRESSION: 1. No evidence of a pulmonary embolism or thoracic aortic aneurysm. 2. Ground-glass infiltrate in the right upper lobe suspicious for pneumonia. RADIATION DOSE DELIVERED: 494.89mGy.cm Total DLP DATA REPOSITORY: All CT scans at this facility are submitted to the National Radiology Data Registry (NRDR) Dose Index Registry (DIR) with the [employer] (A[employer]). RADIATION OPTIMIZATION: All CT scans at this facility use at least one of these dose optimization te chniques: automated exposure control; mA and/or kV adjustment per patient size (includes targeted exa ms where dose is matched to clinical indication); or iterative reconstruction.
[2022-02-09 10:17] LABS: CREATININE 1.2 mg/dL (0.70-1.30); Estimated GFR 64.25 (mL/min/1.73m2)
[2022-02-09] MEDS: Omnipaque 350 MG/ML 100 ML BTL IJ (10:59)
[2022-02-09] MEDS: Normal Saline Flush 10 ML SYR IVP (11:00)
[2022-02-09] MEDS: Normal Saline - Diluent 50 ML VIAL IJ (11:00)
== END ==
PROVIDERS: PCP Nurse Practitioner Adult Health; Visit Provider Nurse Practitioner Family
DX: Z51.81 Encounter for therapeutic drug level monitoring (principal); R05.9 Cough, unspecified; R79.89 Other specified abnormal findings of blood chemistry
CPT/HCPCS: 71275; 82565; J3490

== ENCOUNTER 2022-03-06 11:13 | Outpatient (REF) | payer MEDICARE, SELFPAY ==
[2022-03-06 15:50] LABS: Abs Immature Grans 0.02 10^3/uL (0.0-0.06); Absolute Basophil Count 0.07 10^3/uL (0.0-0.2); Absolute Eosinophil Count 0.34 10^3/uL (0.0-0.7); Absolute Lymphocyte Count 1.84 10^3/uL (1.2-3.4); Absolute Monocyte Count 0.61 10^3/uL (0.1-0.8); Absolute Neutrophil Count 3.71 10^3/uL (1.2-6.7); Basophils % 1.1; Eosinophils % 5.2; HCT 39.9 % (40.0-50.0); HGB 12.8 g/dL (13.5-17.5); Immature Grans % 0.3; Lymphocytes % 27.9; MCH 26.9 pg (27.0-33.0); MCHC 32.1 % (32.0-36.0); MCV 84 fL (80-95); MPV 9.9 fL (8.0-11.0); Monocytes % 9.3; Neutrophils % 56.2; Platelet Count 308 10^3/uL (130-400); RBC 4.76 10^6/uL (4.36-5.78); RDW 14.2 % (11.8-14.1); RDW-SD 43.8 fL; WBC 6.59 10^3/uL (4.4-10.8)
== END 2022-03-06 11:14 | disposition home or self-care (01) ==
LOC: LBN 11:13
PROVIDERS: PCP Nurse Practitioner Adult Health; Visit Provider Nurse Practitioner Adult Health
DX: R05.3 Chronic cough (principal)
CPT/HCPCS: 85025

== ENCOUNTER 2022-03-06 11:22 | Outpatient (CLI) | payer MEDICARE, SELFPAY ==
--- NOTE | 2022-03-06 11:00 | DI.RAD_ITS ---
Exam(s) XR CHEST 2V PA LATERAL EXAM: XR CHEST 2V PA LATERAL CLINICAL HISTORY: CHRONIC COUGH--R05.3 TECHNIQUE: 2D digital imaging was performed. COMPARISON: CR XR CHEST 2V PA LATERAL from 02/01/2022 FINDINGS: HEART: Enlarged, unchanged. Aorta: Not dilated. Tortuous, unchanged. PULMONARY VASCULATURE: Normal. LUNGS: Clear. PLEURAL SPACE: No pleural effusion or pneumothorax. BONE:Unremarkable for age. IMPRESSION: No acute abnormality. DATA REPOSITORY: RADIATION DOSE DELIVERED:
== END 2022-03-06 11:42 ==
LOC: DI 11:22
PROVIDERS: PCP Nurse Practitioner Adult Health; Visit Provider Nurse Practitioner Adult Health
DX: R05.3 Chronic cough (principal)
CPT/HCPCS: 71046

== ENCOUNTER 2022-03-06 11:31 | Outpatient (CLI) | payer MEDICARE, SELFPAY ==
[2022-03-06] MEDS: Albuterol HFA 18 GM 200 PUFF INH IH (15:28)
[2022-03-06] MEDS: Inhaler, Assist Device 1 EACH MC (15:29)
--- NOTE | 2022-03-06 16:18 | W.PFT ---
Date of service: 03/06/22 Time of Service: 14:24 Pulmonary Function Test Result Requesting Provider Adela Esparza Indications: Chronic Cough Interpretation Spirometry: There is no airflow limitation. There is no bronchodilator response. Lung Volumes: Normal lung volumes Diffusion Capacity: Normal diffusion Airway Pressure: Normal airways resistance Impression Normal pulmonary function testing. Clinical Correlation therefore is recommended.
== END 2022-03-06 11:32 | disposition home or self-care (01) ==
PROVIDERS: PCP Nurse Practitioner Adult Health; Visit Provider Nurse Practitioner Adult Health
DX: R05.3 Chronic cough (principal)
CPT/HCPCS: 94060; 94726; 94729

== ENCOUNTER 2022-07-03 10:35 | Outpatient (CLI) | payer MEDICARE, SELFPAY ==
--- NOTE | 2022-07-03 10:10 | DI.RAD_ITS ---
Exam(s) XR KNEE RT 3V AP,LAT,VERONICA EXAM: XR KNEE RT 3V AP,LAT,VERONICA CLINICAL HISTORY: right knee pain. TECHNIQUE: 2D digital imaging was performed. Three views. COMPARISON: CR XR KNEE LT 3V AP,LAT,VERONICA from 07/24/2019 FINDINGS: BONES: No acute fracture is present. No bony destructive lesion is seen. JOINTS: There is severe narrowing with of the medial femoral tibial joint space with a roia-jk-lpah a ppearance. There is some flattening of the medial femoral condyle. There is periarticular spurring. There is varus angulation. Mild spurring at the articular aspect of the patella. No joint effusio n is seen. SOFT TISSUE: Normal. IMPRESSION: Severe degenerative changes of the medial femoral tibial joint. DATA REPOSITORY: RADIATION DOSE DELIVERED:
== END 2022-07-03 10:36 | disposition home or self-care (01) ==
LOC: DIORS 10:35
PROVIDERS: PCP Nurse Practitioner Adult Health; Referring Provider Nurse Practitioner Adult Health; Visit Provider Student in an Organized Health Care Education/Training Program
DX: M17.11 Unilateral primary osteoarthritis, right knee (principal); M25.761 Osteophyte, right knee
CPT/HCPCS: 20610; 73562; J1040

== ENCOUNTER 2022-08-21 01:17 | Outpatient (CLI) | payer MEDICARE, SELFPAY ==
--- NOTE | 2022-08-21 05:45 | ETT_ITS ---
APPROVED REPORT Exam: Exercise Treadmill Patient Location: Out-Patient Room/Bed: Stress Nurse: Taryn Warren RN Ordering Provider:TAIWO FISCHER, Contact Number: [phone] BMI: 29.53 Baseline Rhythm: Sinus Bradycardia Comment: 1st AVB AL 315 Indications: Amyloid heart disease, cardiomyopathy, chronic CHF Medical History Medical History: Amyloid heart disease, HFpEF (chronic), R sciatica, OA R Knee, DEEP, PVD, HTN, HLD, c ardiomeagly, Gout Cardiac Medications: Valsartan, sildenafil, omeprazole, metoprolol succinate, furosemide, aspirin, pr evagen, potassium Allergies: atorvastatin, ezetimide, lovastatin, pravastatin, lisinopril Cardiac Risk Factors: Family Hx, HTN, HLD, PVD, CVD Previous Cardiac Procedures: Amyloid workup Pretest Chest Pain Characteristics: None Exercise History: Physically active Physical Disabilities: None Lung Sounds: Clear to auscultation Heart Sounds: Regular Stress Test Details Test: Exercise stress testing was performed using a Stuart protocol. Rest Stress HR Resting HR Supine: 69 bpm Max Heart Rate (APMHR): 147 bpm Resting HR Standin bpm Target HR (85% APMHR): 125 bpm Max HR Achieved: 121 bpm % of APMHR: 82 Recovery HR: 72 bpm HR response to stress: Normal HR response to stress BP Resting BP Supine: 128/82 mmHg Resting BP Standin/92 mmHg Max BP: 172/88 mmHg Recovery BP: 148/84 mmHg BP response to stress: Normal blood pressure response to stress. ECG Resting ECG: Sinus Rhythm, 1st degree AV block Ectopy: None Stress ECG: Sinus Rhythm, Sinus Tachycardia ST Change: Horizontal ST depression Lead(s): II, III, aVF Stage: [address] Deviation: 1.5 mm Arrhythmia: None Recovery ECG: Sinus Rhythm Recovery ST Change: No significant ST segment changes noted Recovery Arrhythmia: None Clinical Reason for Termination: Fatigue Stress Symptoms: General Fatigue Exercise duration: 5 min13 sec Highest Stage Reached: Stage 2: 2.5 mph at 12% grade. Exercise capacity: 7.05 METs Functional Capacity: Average Capacity Angina Score: None Rivera Treadmill Score: 4.6 Rate Pressure Product: [id number] Stress ECG Conclusion 1. Resting electrocardiogram showed left ventricular hypertrophy with repolarization abnormalities 2. Patient exercised on the Stuart protocol and completed a workload of 7.05 METS, stopping due to fat igue. 3. Normal hemodynamic response to exercise. Peak heart rate achieved was 82% of predicted heart rate for age 4. Electrocardiographic portion of the test was nondiagnostic due to inadequate heart rate and restin g ST-T abnormalities 5. There were no significant dysrhythmias Rivera Treadmill Score is 4.6 which is Moderate risk. Stress Test Summary STAGE Time (mins) Speed (mph) Grade (%) HR BP SpO2 SYMPTOMS METS Supine 69 128/82 98 Standing 74 146/92 99 1 3 1.7 10 103 98 4.5 1 min recovery 111 148/72 98 3 min recovery 84 172/88 97 6 min recovery 74 148/84 98 Patient was unable to reach THR due to general fatigue. Of note-patient reports holding Metoprolol fo r 50 hours prior to test.
== END 2022-08-21 01:37 ==
LOC: DI 01:18
PROVIDERS: PCP Nurse Practitioner Adult Health; Visit Provider Nurse Practitioner Adult Health
DX: E85.4 Organ-limited amyloidosis (principal); I43 Cardiomyopathy in diseases classified elsewhere; I50.32 Chronic diastolic (congestive) heart failure
CPT/HCPCS: 93016; 93018; 93017

== ENCOUNTER 2022-09-12 00:26 | Outpatient (CLI) | payer MEDICARE, SELFPAY ==
--- NOTE | 2022-09-12 07:45 | DI.NM_ITS ---
APPROVED REPORT Exam: Pharmacologic Patient Location: Out-Patient Room/Bed: Stress Nurse: Kassy Christie RN Ordering Provider:TAIWO CONNORSKATHI, Contact Number: [phone] BMI: 29.97 Baseline Rhythm: Sinus Rhythm Comment: 1 degree AV block Indications: Indeterminate ETT, amyloid heart disease, chronic heart failure Medical History Medical History: Amyloid heart dx, HFpEF, amyloidosis, sciatica, OA, heartburn, ED, DEEP, PVD, HLD, HT N, gout Cardiac Medications: Metoprolol, lasix, omeprazole, valsartan, vyndamax Allergies: Atorvastatin, zetia, lovastatin, pravastatin, lisinopril Cardiac Risk Factors: Family Hx, HTN, HLD, PVD, CVD Previous Cardiac Procedures: Amyloid work up. Pretest Chest Pain Characteristics: None Exercise History: Physically active Physical Disabilities: None Lung Sounds: Clear to auscultation Heart Sounds: Regular Stress Test Details Test: Pharmacologic stress was paired with low level exercise. Reason for pharmacologic stress test: Hx. of failure to obtain target HR on previous ETT. Nuclear Acquisition: Rest Tc-99m/Stress Tc-99m 1 day Rest Isotope: Tc-99m Sestamibi. Dose: 9.5 Date: 09/12/2022 Injection Time: 1125 Stress Isotope: Tc-99m Sestamibi. Dose: 31.0 Date: 09/12/2022 Injection Time: 1428 HR Resting HR Supine: 69 bpm Max Heart Rate (APMHR): 147.358903 bpm Resting HR Standin bpm Target HR (85% APMHR): 124.077472 bpm Max HR Achieved: 100 bpm % of APMHR: 68.03 Recovery HR: 70 bpm BP Resting BP Supine: 154/90 mmHg Resting BP Standin/90 mmHg Max BP: 154/84 mmHg Recovery BP: 142/82 mmHg ECG Resting ECst degree AV block, Sinus Rhythm Ectopy: None Stress ECG: Sinus Rhythm, 1st degree AV block ST Change: Nondiagnostic low heart rate Arrhythmia: Rare PAC Recovery ECG: Sinus Rhythm, 1st degree AV block Recovery ST Change: Nondiagnostic low heart rate Recovery Arrhythmia: Occasional PAC Clinical Stress Symptoms: Mild SOB Angina Score: None Rate Pressure Product: 09305 Stress ECG Conclusion 1. The resting electrocardiogram showed first-degree AV block, poor R wave progression 2. Patient underwent testing using a combination of low-level exercise and pharmacologic stress with regadenoson 3. Peak heart rate achieved was 68% of predicted for age 4. Electrocardiographic portion of the test was nondiagnostic 5. See MPI report Stress Test Summary STAGE HR BP SpO2 Symptoms NOTES Supine 69 154/90 Standing 71 150/80 1 min post Lexiscan injection 90 154/84 Mild SOB 3 min post Lexiscan injection 88 150/78 6 min post Lexiscan injection 70 142/82 All symptoms resolved. MPI Conclusion Myocardial perfusion is normal, no ischemia or evidence of prior infarction Ejection fraction is 34% with global hypokinesis Radiologist Interpretation Radiologist agrees with Campus Coordinator's Interpretation. Radiologist Interpretation by: Bijal Montez MD Interpretation Date/Time: 09/15/2022 10:18:44
[2022-09-12] MEDS: Regadenoson 0.4 MG/5 ML SYR IVP (14:37)
== END 2022-09-12 00:46 ==
LOC: DI 00:26
PROVIDERS: PCP Nurse Practitioner Adult Health; Visit Provider Nurse Practitioner Adult Health
DX: E85.4 Organ-limited amyloidosis (principal); I43 Cardiomyopathy in diseases classified elsewhere; I50.32 Chronic diastolic (congestive) heart failure
CPT/HCPCS: 78452; 93016; 93018; 93017; J2785

== ENCOUNTER 2022-10-10 07:52 | Outpatient (CLI) | payer MEDICARE, SELFPAY ==
--- NOTE | 2022-10-10 07:52 | RT.EKG_ITS ---
APPROVED REPORT Exam: Resting ECG Reason for Exam: HF Patient Location: O HR:66 bpm ECG Measurements Heart Rate 66 AXIS OR 325 P -54 QRSd 94 QRS 28 QT 392 T 209 QTc 411 Conclusion Sinus or ectopic atrial rhythm...P axis (-45,135) Prolonged OR interval...OR >220, V-rate 50- 90 Borderline low voltage, extremity leads...all extremity leads <0.6mV Possible Anteroseptal infarct, old...Q >40mS, V1-V2
== END 2022-10-10 07:53 | disposition home or self-care (01) ==
LOC: DI.CARD 07:53
PROVIDERS: PCP Nurse Practitioner Adult Health; Visit Provider Internal Medicine Cardiovascular Disease
DX: E85.4 Organ-limited amyloidosis (principal); I43 Cardiomyopathy in diseases classified elsewhere; I50.32 Chronic diastolic (congestive) heart failure
CPT/HCPCS: 93010

== ENCOUNTER → 2022-10-10 12:56 | Outpatient (BNVA) | payer MEDICARE, SELFPAY | PROVIDERS: PCP Nurse Practitioner Adult Health; Referring Provider Nurse Practitioner Adult Health; Visit Provider Internal Medicine Cardiovascular Disease | DX: I11.0 Hypertensive heart disease with heart failure (principal); E85.4 Organ-limited amyloidosis; I43 Cardiomyopathy in diseases classified elsewhere; I50.32 Chronic diastolic (congestive) heart failure | CPT/HCPCS: 93005; 99203; 99214 ==

== ENCOUNTER → 2023-01-11 11:09 | Outpatient (BNVA) | payer MEDICARE, SELFPAY | PROVIDERS: PCP Nurse Practitioner Adult Health; Referring Provider Nurse Practitioner Adult Health | DX: M17.11 Unilateral primary osteoarthritis, right knee (principal) | CPT/HCPCS: 20610; J1040 ==

== ENCOUNTER → 2023-08-14 10:56 | Outpatient (BNVA) | payer MEDICARE, SELFPAY | PROVIDERS: PCP Nurse Practitioner Adult Health; Referring Provider Nurse Practitioner Adult Health; Visit Provider Internal Medicine Cardiovascular Disease | DX: E85.4 Organ-limited amyloidosis (principal); I43 Cardiomyopathy in diseases classified elsewhere; I50.32 Chronic diastolic (congestive) heart failure; E78.2 Mixed hyperlipidemia | CPT/HCPCS: 99213 ==

== ENCOUNTER 2023-10-16 01:57 | Outpatient (CLI) | payer MEDICARE, SELFPAY ==
[2023-10-16 10:56] LABS: ALT 67 U/L (16-63); AST 49 U/L (15-37); Albumin 3.9 g/dL (3.4-5.0); Alkaline Phosphatase 110 U/L (46-116); Bilirubin, Direct 0.2 mg/dL (0.0-0.2); Bilirubin, Total 0.61 mg/dL (0.2-1.0); Total Protein 6.7 g/dL (6.4-8.2)
== END 2023-10-16 01:58 | disposition home or self-care (01) ==
PROVIDERS: PCP Nurse Practitioner Adult Health; Visit Provider Internal Medicine Cardiovascular Disease
DX: E78.5 Hyperlipidemia, unspecified (principal)
CPT/HCPCS: 36415; 80076

== ENCOUNTER 2023-12-14 09:55 | Outpatient (CLI) | payer MEDICARE, SELFPAY ==
--- NOTE | 2023-12-14 09:45 | DI.RAD_ITS ---
Exam(s) XR CHEST 2V PA LATERAL EXAM: XR CHEST 2V PA LATERAL CLINICAL HISTORY: Likely R sided pneumonia, community acquired pneumonia, J18.9. TECHNIQUE: 2D digital imaging was performed. COMPARISON: CR XR CHEST 2V PA LATERAL from 02/01/[address] CHEST PE CTA from 02/09/2022 CR XR CHEST 2V PA LATERAL from 03/06/2022 FINDINGS: 2 views: Mild cardiomegaly. Somewhat tortuous descending thoracic aorta. Mediastinum appears widened but unc hanged. Left lung is clear There is significant infiltrate in the right upper lobe posterior segment. No cavitation evident. N o pleural effusions IMPRESSION: Prominent area of infiltrate in the right upper lobe predominately in the posterior segment. No pleu ral effusions. DATA REPOSITORY: RADIATION DOSE DELIVERED:
== END 2023-12-14 10:15 ==
LOC: DI 09:56
PROVIDERS: PCP Nurse Practitioner Adult Health; Visit Provider Family Medicine
DX: J18.9 Pneumonia, unspecified organism (principal)
CPT/HCPCS: 71046

== ENCOUNTER 2023-12-25 02:57 | Outpatient (CLI) | payer MEDICARE, SELFPAY ==
[2023-12-25 13:23] LABS: ALT 74 U/L (16-63); AST 56 U/L (15-37); Albumin 3.9 g/dL (3.4-5.0); Alkaline Phosphatase 154 U/L (46-116); Anion Gap 11.7 mmol/L (3-11); BUN 25 mg/dL (7-18); Bilirubin, Total 0.66 mg/dL (0.2-1.0); CO2 27.3 mmol/L (21.0-32.0); CREATININE 1.3 mg/dL (0.70-1.30); Calcium 9.3 mg/dL (8.5-10.1); Calculated LDL 52 mg/dL (<100); Chloride 105 mmol/L (98-107); Cholesterol 131 mg/dL (<200); Estimated GFR 57.65 (mL/min/1.73m2); Glucose 124 mg/dL (74-106); HDL Cholesterol 56 mg/dL (40-60); Potassium 4.4 mmol/L (3.5-5.1); Sodium 144 mmol/L (136-145); Total Protein 7.3 g/dL (6.4-8.2); Triglyceride 116 mg/dL (<150)
[2023-12-25 13:59] LABS: Hemoglobin A1C 5.9 % (<5.7)
[2023-12-26 18:18] LABS: Vitamin B12 680 pg/mL (193-986)
[2023-12-26 18:19] LABS: Folate > 20.0 ng/mL (8.6-20.0)
== END 2023-12-25 02:58 | disposition home or self-care (01) ==
PROVIDERS: PCP Nurse Practitioner Adult Health; Visit Provider Nurse Practitioner Adult Health
DX: I10 Essential (primary) hypertension (principal); E78.2 Mixed hyperlipidemia; R73.01 Impaired fasting glucose; R74.01 Elevation of levels of liver transaminase levels; Z12.5 Encounter for screening for malignant neoplasm of prostate; J18.9 Pneumonia, unspecified organism; R20.2 Paresthesia of skin; N52.9 Male erectile dysfunction, unspecified; K21.9 Gastro-esophageal reflux disease without esophagitis; E85.4 Organ-limited amyloidosis; R12 Heartburn; I43 Cardiomyopathy in diseases classified elsewhere; Z85.828 Personal history of other malignant neoplasm of skin; M1A.9XX0 Chronic gout, unspecified, without tophus (tophi)
CPT/HCPCS: 36415; 80053; 80061; 82607; 82746; 83036

== ENCOUNTER 2023-12-27 01:45 | Outpatient (CLI) | payer MEDICARE, SELFPAY ==
--- NOTE | 2023-12-27 | DI.MRI_ITS ---
Exam(s) MR LUMBAR SPINE WO EXAM: MR LUMBAR SPINE WO CLINICAL HISTORY: SPONDYLOLISTHESIS LUMBAR,M43.16, LUMBAR STENOSIS NEUROGENIC CLAUDICATION. TECHNIQUE: Multiplanar multisequence MRI of the Lumbar spine was performed. COMPARISON: MR MRI - LUMBAR SPINE WO CONTRAST from 01/29/2017 FINDINGS: Bones: The last intervertebral disc space is designated the L5/S1 level for the numbering purpose of this ex amination. The vertebral body heights are well maintained. Alignment: Mild degenerative spondylolisthesis at L4-5. The marrow signal characteristics are unremarkable. Hemangioma L4. Cord: The conus tip ends at the T12 level. It is of normal size and signal intensity. T12-L1: No focal disc herniation is present. No central spinal canal stenosis.No neural foraminal st enosis. L1-2: No focal disc herniation is present. No central spinal canal stenosis.No neural foraminal sten osis. L2-3:Mild loss of disc height. Yckc-sj-joakzsef posterior disc bulging. No focal disc herniation is present. Mild facet degenerative changes. No central spinal canal stenosis.No neural foraminal st enosis. L3-4: Mild concentric disc bulging.No focal disc herniation is present. Mild facet degenerative adrian ges. No central spinal canal stenosis.No neural foraminal stenosis. L4-5:Mild loss of disc height. Broad-based disc bulging. Prominent facet degenerative changes well as ligamentous hypertrophy. No focal disc herniation is present. Severe central canal stenosis as w ell as severe bilateral neural foraminal narrowing. Findings have significantly progressed from the prior exam. L5-S1: Mild disc bulging.No focal disc herniation is present. No central spinal canal stenosis.No n eural foraminal stenosis. The visualized SI joints and sacrum are unremarkable. Soft tissues: The paraspinal soft tissues are unremarkable. IMPRESSION: Severe central canal stenosis and severe bilateral neural foraminal narrowing at L4-5 secondary to co mbination of disc bulging and facet degenerative changes. Mild degenerative changes noted at at L2-3, L3-4 and L5-S1. DATA REPOSITORY:
== END 2023-12-27 02:05 ==
PROVIDERS: PCP Nurse Practitioner Adult Health; Visit Provider Nurse Practitioner
DX: M48.07 Spinal stenosis, lumbosacral region (principal)
CPT/HCPCS: 72148

== ENCOUNTER 2024-02-04 01:34 | Outpatient (CLI) | payer MEDICARE, SELFPAY ==
--- NOTE | 2024-02-04 09:00 | DI.RAD_ITS ---
Exam(s) XR CHEST 2V PA LATERAL EXAM: XR CHEST 2V PA LATERAL CLINICAL HISTORY: Interval F/U RUL pneumonia to ensure resolution,J18.9. TECHNIQUE: 2D digital imaging was performed. COMPARISON: CR XR CHEST 2V PA LATERAL from 12/14/2023 FINDINGS: 2 views: Cardiomegaly again noted. The mediastinum is unchanged. Previously described area of infiltrate in the right upper lobe has resolved. There presently no inf iltrates nor pleural effusions. No pulmonary edema. IMPRESSION: No acute pulmonary findings.Previously present right lung infiltrate has resolved. There are no pleu ral effusions. DATA REPOSITORY: RADIATION DOSE DELIVERED:
== END 2024-02-04 01:54 ==
PROVIDERS: PCP Nurse Practitioner Adult Health; Visit Provider Nurse Practitioner Adult Health
DX: J18.9 Pneumonia, unspecified organism (principal)
CPT/HCPCS: 71046

== ENCOUNTER → 2024-02-18 07:52 | Outpatient (BNVA) | payer MEDICARE, SELFPAY | PROVIDERS: PCP Nurse Practitioner Adult Health; Referring Provider Nurse Practitioner Adult Health; Visit Provider Physician Assistant | DX: M17.11 Unilateral primary osteoarthritis, right knee (principal) | CPT/HCPCS: 20610; J1010 ==

== ENCOUNTER 2024-05-30 00:40 | Outpatient (CLI) | payer MEDICARE, SELFPAY ==
--- NOTE | 2024-05-30 06:45 | DI.US_ITS ---
Exam(s) US ABDOMEN LIMITED EXAM: US ABDOMEN LIMITED CLINICAL HISTORY: Persistent elevated AST ALT; assess liver,r74.01 TECHNIQUE: Ultrasound abdomen performed using standard protocol. COMPARISON: US US OR ANESTHESIA from 09/10/[address] CHEST PE CTA from 02/09/2022 FINDINGS: There is no ascites evident. LIVER: Liver is hyperechoic indicating steatosis. There no discrete focal hepatic lesions evident. GALLBLADDER/BILIARY: Gallbladder is contracted but there are no obvious intraluminal calculi. No gal lbladder wall edema nor pericholecystic fluid. The common hepatic duct isnot dilated, measuring 5mm at the level of gilson hepatis. PANCREAS: There is no evidence of pancreatic mass nor dilatation of the pancreatic duct. RIGHT KIDNEY:No evidence of solid mass, calculus, nor hydronephrosis. No cortical cysts evident. IMPRESSION: 1. No evidence of obvious cholelithiasis nor dilatation of the biliary tree. 2. Hepatic steatosis. 3. No other significant ultrasound findings in the right upper quadrant and there is no ascites. DATA REPOSITORY:
== END 2024-05-30 01:00 ==
LOC: DI 00:40
PROVIDERS: PCP Nurse Practitioner Adult Health; Visit Provider Nurse Practitioner Adult Health
DX: R74.01 Elevation of levels of liver transaminase levels (principal); K76.0 Fatty (change of) liver, not elsewhere classified
CPT/HCPCS: 76705

== ENCOUNTER 2024-05-30 00:57 | Outpatient (CLI) | payer MEDICARE, SELFPAY ==
[2024-05-30 09:44] LABS: ALT 39 U/L (16-63); AST 32 U/L (15-37); Alkaline Phosphatase 155 U/L (46-116); Bilirubin, Direct 0.1 mg/dL (0.0-0.2); Bilirubin, Total 0.5 mg/dL (0.2-1.0); Total Protein 6.9 g/dL (6.4-8.2); Uric Acid 4.6 mg/dL (3.5-7.2)
[2024-05-30 19:21] LABS: PSA, Screening 0.3 ng/mL (<=6.5)
[2024-05-30 20:02] LABS: Hepatitis A Antibody IgM Negative (Negative); Hepatitis B Core Antibody Negative (Negative); Hepatitis B surface Ag Negative (Negative); Hepatitis C Ab w Rflx HCV PCR Negative (Negative)
== END 2024-05-30 00:58 | disposition home or self-care (01) ==
LOC: LBO 00:57
PROVIDERS: PCP Nurse Practitioner Adult Health; Referring Provider Nurse Practitioner Adult Health; Visit Provider Nurse Practitioner Adult Health
DX: R74.01 Elevation of levels of liver transaminase levels (principal); R73.01 Impaired fasting glucose; Z12.5 Encounter for screening for malignant neoplasm of prostate
CPT/HCPCS: 36415; 80076; 84153; 86704; 86709; 86803; 87340; 84550

== ENCOUNTER 2024-08-12 08:11 | Outpatient (CLI) | payer MEDICARE, SELFPAY ==
--- NOTE | 2024-08-12 08:00 | RT.EKG_ITS ---
APPROVED REPORT Exam: Resting ECG Reason for Exam: CAD Patient Location: O HR:55 bpm ECG Measurements Heart Rate 55 AXIS NV [id number] P [id number] QRSd 84 QRS 16 QT 568 T 146 QTc 544 Conclusion Sinus rhythm Ventricular premature complex...V complex w/ short R-R interval Borderline low voltage, extremity leads...all extremity leads <0.6mV Anteroseptal infarct, old...Q >40mS, V1-V2 Nondiagnostic ST-T abnormalities
== END 2024-08-12 08:12 | disposition home or self-care (01) ==
LOC: DI.CARD 08:11
PROVIDERS: PCP Nurse Practitioner Adult Health; Visit Provider Internal Medicine Cardiovascular Disease
DX: E85.4 Organ-limited amyloidosis (principal); I43 Cardiomyopathy in diseases classified elsewhere; I25.10 Atherosclerotic heart disease of native coronary artery without angina pectoris
CPT/HCPCS: 93010

== ENCOUNTER → 2024-08-12 10:41 | Outpatient (BNVA) | payer MEDICARE, SELFPAY | PROVIDERS: PCP Nurse Practitioner Adult Health; Visit Provider Internal Medicine Cardiovascular Disease | DX: I25.10 Atherosclerotic heart disease of native coronary artery without angina pectoris (principal); I50.32 Chronic diastolic (congestive) heart failure; E85.4 Organ-limited amyloidosis; E78.2 Mixed hyperlipidemia | CPT/HCPCS: 99213; 93005 ==

== ENCOUNTER 2024-09-10 02:39 | Outpatient (CLI) | payer MEDICARE, SELFPAY ==
[2024-09-10 09:51] LABS: Uric Acid 9.4 mg/dL (3.5-7.2)
== END 2024-09-10 02:40 | disposition home or self-care (01) ==
LOC: LBO 02:40
PROVIDERS: Absent Provider Nurse Practitioner Adult Health; PCP Nurse Practitioner Adult Health; Referring Provider Nurse Practitioner Adult Health; Visit Provider Nurse Practitioner Adult Health
DX: M1A.9XX0 Chronic gout, unspecified, without tophus (tophi) (principal)
CPT/HCPCS: 36415; 84550

== ENCOUNTER 2024-12-17 01:44 | Outpatient (CLI) | payer MEDICARE, SELFPAY ==
[2024-12-17 15:21] LABS: Uric Acid 5.3 mg/dL (3.5-7.2)
== END 2024-12-17 01:45 | disposition home or self-care (01) ==
LOC: LBO 01:44
PROVIDERS: PCP Nurse Practitioner Adult Health; Visit Provider Nurse Practitioner Adult Health
DX: M1A.9XX0 Chronic gout, unspecified, without tophus (tophi) (principal)
CPT/HCPCS: 36415; 84550

== ENCOUNTER 2025-02-18 08:47 | Outpatient (CLI) | payer MEDICARE, SELFPAY ==
--- NOTE | 2025-02-18 08:15 | DI.RAD_ITS ---
Exam(s) XR KNEE RT 4V AP,LAT,VERONICA,PAT EXAM: XR KNEE RT 4V AP,LAT,VERONICA,PAT CLINICAL HISTORY: R knee pain. TECHNIQUE: 2D digital imaging was performed of the right knee. Four views obtained. Merchant, AP, lateral and PA tunnel views were obtained. COMPARISON: CR XR KNEE RT 3V AP,LAT,VERONICA from 07/03/2022 FINDINGS: BONES: No acute fracture is present. No bony destructive lesion is seen. JOINTS: There is marked narrowing in the medial femoral tibial joint which is bone on bone. There are osteophytes seen in the patellofemoral and the medial femoral tibial joint. There is calcification seen in the lateral femoral tibial joint consistent with chondrocalcinosis. There is a joint effusion present. SOFT TISSUE: Atherosclerotic calcification is present. IMPRESSION: Marked osteoarthritis in the right knee. DATA REPOSITORY: RADIATION DOSE DELIVERED:
== END 2025-02-18 08:48 | disposition home or self-care (01) ==
LOC: DIORS 08:47
PROVIDERS: PCP Nurse Practitioner Adult Health; Referring Provider Nurse Practitioner Adult Health; Visit Provider Physician Assistant
DX: M17.11 Unilateral primary osteoarthritis, right knee (principal)
CPT/HCPCS: 20610; J1010; 73564